=== PATIENT | female | born 1965 | race Caucasian/White ===

== ENCOUNTER 2025-07-02 08:35 | Emergency (ER) | payer MEDICAID, SELFPAY ==
--- OUTSIDE RECORDS SUMMARY | 2025-05-21 20:29 | XMS_ITS | Continuity of Care Document ---
Author Organization [facility] Address [address] [place] [address] Support Name Relationship Address Phone Yordan Jones Delphine DO Personal Relationship [address] [place] [address] Yordan Jones DO Personal Relationship [facility] [place] [address] Tiffani Moreno APRN Personal Relationship [address] [place] [address] Blanca Gonsalez APRN Personal Relationship [address] [place] [address] Rodrigo Treviño MD Personal Relationship [address] [place] [address] Care Teams Patient Care Team Team Status: Active Member Role Status Dates Linda Mercado Tourist Agent Active Yordan Jones DO Primary Care Provider Active Visit Care Team Team Status: Inactive Member Role Status Dates Yordan Jones DO Primary Care Provider Active S tart: January 30, 2025 End: January 30, 2025 Yordan Jones DO Attending Provider Active Star t: January 30, 2025 End: January 30, 2025 Visit Care Team Team Status: Inactive Member Role Status Dates Yordan Jones DO Primary Care Provider Active S tart: January 30, 2025 End: January 30, 2025 Yordan Jones DO Attending Provider Active Star t: January 30, 2025 End: January 30, 2025 Visit Care Team Team Status: Inactive Member Role Status Dates Yordan Jones DO Primary Care Provider Active S tart: February 21, 2025 End: February 21, 2025 Yordan Jones DO Attending Provider Active Star t: February 21, 2025 End: February 21, 2025 Visit Care Team Team Status: Inactive Member Role Status Dates Tiffani Moreno APRN Attending Provider Active Start: February 23, 2025 End: February 23, 2025 Yordan T Rice , DO Primary Care Provider Active S tart: February 23, 2025 End: February 23, 2025 Visit Care Team Team Status: Inactive Member Role Status Dates Yordan T Rice , DO Primary Care Provider Active S tart: March 02, 2025 End: March 02, 2025 Yordan T Rice , DO Attending Provider Active Star t: March 02, 2025 End: March 02, 2025 Visit Care Team Team Status: Inactive Member Role Status Dates Yordan T Rice , DO Primary Care Provider Active S tart: March 21, 2025 End: March 21, 2025 Yordan T Rice , DO Attending Provider Active Star t: March 21, 2025 End: March 21, 2025 Visit Care Team Team Status: Inactive Member Role Status Dates Blanca Gonsalez APRN Attending Provider Active Sta rt: March 28, 2025 End: March 28, 2025 Yordan T Rice , DO Primary Care Provider Active S tart: March 28, 2025 End: March 28, 2025 Visit Care Team Team Status: Inactive Member Role Status Dates Yordan T Rice , DO Primary Care Provider Active S tart: April 19, 2025 End: April 19, 2025 Yordan T Rice , DO Attending Provider Active Star t: April 19, 2025 End: April 19, 2025 Visit Care Team Team Status: Inactive Member Role Status Dates Rodrigo Treviño MD Attending Provider Active Start : May 09, 2025 End: May 09, 2025 Yordan T Rice , DO Primary Care Provider Active S tart: May 09, 2025 End: May 09, 2025 Visit Care Team Team Status: Inactive Member Role Status Dates Yordan T Rice , DO Primary Care Provider Active S tart: May 21, 2025 End: May 21, 2025 Yordan T Rice , DO Attending Provider Active Star t: May 21, 2025 End: May 21, 2025 Visit Care Team Team Status: Inactive Member Role Status Dates Yordan T Rice , DO Primary Care Provider Active S tart: May 21, 2025 End: May 21, 2025 Yordan T Rice , DO Attending Provider Active Star t: May 21, 2025 End: May 21, 2025 Chief Complaint and Reason for Visit Chief Complaint Admit Date Office visit January 30, 2025 10:18 am labs January 30, 2025 11:55 am Office visit February 21, 2025 11:1 0am Injection Only Visit February 23, 2025 1:4 4pm Z12.31 - Encounter for screening mammogr am for mal March 02, 2025 1:51pm Wellness/Preventative March 21, 2025 1:1 1pm 3 Month f/u March 28, 2025 9:01 am Office visit April 19, 2025 1:0 4pm Office visit May 21, 2025 8:23am labs only May 21, 2025 9:11am Reason for Visit Admit Date BMI 28.0-28.9,adult January 30, 2025 10:18 am Chronic pain syndrome January 30, 2025 10: 18am Slow transit constipation January 30, 2025 10:18am CAD (coronary artery disease) January 30, 2025 10:18am Diabetes mellitus January 30, 2025 10:18 am Essential (primary) hypertension January 10:18am Lumbar degenerative disc disease January 10:18am Lumbar radicular pain January 30, 2025 10: 18am Mixed hyperlipidemia January 30, 2025 10:1 8am Pure hypercholesterolemia January 30, 2025 10:18am PVD (peripheral vascular disease) with c laudication January 30, 2025 10:18am Spondylolisthesis, lumbar region January 10:18am Subclinical hyperthyroidism January 30 10:18am Type 2 diabetes mellitus with diabetic p olyneuropathy January 30, 2025 10:18am Type 2 diabetes mellitus wit h stage 3b chronic kidney disease January 30, 2025 10:18am Vitamin D deficiency January 30, 2025 10:1 8am CHF (congestive heart failure) January 30, 2025 10:18am Chronic pain syndrome February 21, 2025 11 :10am Slow transit constipation February 21 11:10am CAD (coronary artery disease) February 21, 2025 11:10am Essential (primary) hypertension February [id number] 11:10am Lumbar degenerative disc disease February [id number] 11:10am Lumbar radicular pain February 21, 2025 11 :10am Mixed hyperlipidemia February 21, 2025 11: 10am Pure hypercholesterolemia February 21 11:10am PVD (peripheral vascular disease) with c laudication February 21, 2025 11:10am Spondylolisthesis, lumbar region February [id number] 11:10am Subclinical hyperthyroidism February 21 025 11:10am Type 2 diabetes mellitus with diabetic p olyneuropathy February 21, 2025 11:10am Type 2 diabetes mellitus wit h stage 3b chronic kidney disease February 21, 2025 11:10am Vitamin D deficiency February 21, 2025 11: 10am CHF (congestive heart failure) February 11:10am BMI 28.0-28.9,adult March 21, 2025 1:11p m Buergers disease March 21, 2025 1:11p m Chronic pain syndrome March 21, 2025 1:1 1pm Slow transit constipation March 21, 2025 1:11pm Allergic rhinitis March 21, 2025 1:11p m CAD (coronary artery disease) March 21, 2025 1:11pm COPD (chronic obstructive pulmonary dise ase) March 21, 2025 1:11pm Essential (primary) hypertension March 1:11pm Lumbar degenerative disc disease March 1:11pm Lumbar radicular pain March 21, 2025 1:1 1pm Mixed hyperlipidemia March 21, 2025 1:11 pm PVD (peripheral vascular disease) with c laudication March 21, 2025 1:11pm Subclinical hyperthyroidism March 21 1:11pm Type 2 diabetes mellitus with diabetic p olyneuropathy March 21, 2025 1:11pm Type 2 diabetes mellitus wit h stage 3b chronic kidney disease March 21, 2025 1:11pm Vitamin D deficiency March 21, 2025 1:11 pm Encounter for Health Maintenance Examina tion in Adult March 21, 2025 1:11pm CAD (coronary artery disease) March 28, 2025 9:01am Cigarette nicotine dependence March 28, 2025 9:01am Essential (primary) hypertension March 282024 9:01am Pure hypercholesterolemia March 28 9:01am PVD (peripheral vascular disease) with c laudication March 28, 2025 9:01am Type 2 diabetes mellitus with diabetic p olyneuropathy March 28, 2025 9:01am Chronic pain syndrome April 19, 2025 1 :04pm Slow transit constipation April 19 1:04pm CAD (coronary artery disease) April 1:04pm Essential (primary) hypertension April 19, 2025 1:04pm Lumbar degenerative disc disease April 19, 2025 1:04pm Lumbar radicular pain April 19, 2025 1 :04pm Mixed hyperlipidemia April 19, 2025 1: 04pm Pure hypercholesterolemia April 19 1:04pm PVD (peripheral vascular disease) with c laudication April 19, 2025 1:04pm Spondylolisthesis, lumbar region April 19, 2025 1:04pm Subclinical hyperthyroidism April 19, 2025 1:04pm Type 2 diabetes mellitus with diabetic p olyneuropathy April 19, 2025 1:04pm Type 2 diabetes mellitus wit h stage 3b chronic kidney disease April 19, 2025 1:04pm Vitamin D deficiency April 19, 2025 1: 04pm CHF (congestive heart failure) April 1:04pm Diabetes mellitus May 21, 2025 8:23am Subclinical hyperthyroidism May 82024 8:23am Allergies, Adverse Reactions, Alerts Allergen Type Severity Reaction Last Updated Verified Status codeine Allergy Mild Hives May 09, 025 7:12am Yes Active lisinopril Adverse Reaction Mild Cough April 142024 7:12am Yes Active Social History Smoking Status Status Start Date End Date Date of Observa tion Ex-smoker (finding) April 142024 8:04am Observation Status Observation Response Date of Response substance use type marijuana May 09, 2025 7:17am alcohol intake never May 09 7:17am Legal Sex Female Sex Assigned At Female 1965 Gender Identity Cisgender/Not transgender (findi ng) June 26, 2024 Cisgender/Not transgender (findi ng) June 26, 2024 Cisgender/Not transgender (findi ng) June 26, 2024 Cisgender/Not transgender (findi ng) June 26, 2024 Cisgender/Not transgender (findi ng) June 26, 2024 Cisgender/Not transgender (findi ng) June 26, 2024 Cisgender/Not transgender (findi ng) June 26, 2024 Cisgender/Not transgender (findi ng) June 26, 2024 Cisgender/Not transgender (findi ng) June 26, 2024 Cisgender/Not transgender (findi ng) June 26, 2024 Cisgender/Not transgender (findi ng) June 26, 2024 Cisgender/Not transgender (findi ng) June 26, 2024 Sexual Orientation Unknown Unknown Unknown Unknown Unknown Unknown Unknown Unknown Unknown Unknown Unknown Unknown Status Not May 21, 2025 Not April 19, 2025 Not March 21, 2025 Not February 21, 2025 Not January 30, 2025 Family History Relationship Condition Age at Onset Recorded Date/T jacinda mother Heart disease Unknown brother History of coronary artery bypass surgery Unknown Problems Active Problems Medical Problem Onset Date Status Acquired spondylolisthesis of lumbosacral region Unknown Active Acute dehydration Unknown Active Type 2 diabetes mellitus with stage 3b chronic k idney disease Unknown Active Encounter for general adult medical examination with abnormal findings Unknown Active Type 2 diabetes mellitus with diabetic polyneuro tommy Unknown Active Low back pain Unknown Active Spondylolisthesis, lumbar region Unknown Active Lateral epicondylitis Unknown Active Subclinical hyperthyroidism Unknown Acti ve Candidiasis of female genitalia Unknown Active Myalgia Unknown Active Dizziness Unknown Active Diabetes mellitus Unknown Active Upper back pain Unknown Active CAD (coronary artery disease) Unknown Ac tive Cat scratch fever Unknown Active Buergers disease Unknown Active Dyspnea Unknown Active Pure hypercholesterolemia Unknown Active Mixed hyperlipidemia Unknown Active Pleural effusion Unknown Active Status post coronary artery bypass grafting Unkn own Active Lumbar degenerative disc disease Unknown Active Essential (primary) hypertension Unknown Active Cigarette nicotine dependence Unknown Ac tive Abnormal mammogram of right breast Unknown Active Superficial thrombophlebitis Unknown Act faiza BMI 28.0-28.9,adult Unknown Active BMI 29.0-29.9,adult Unknown Active BMI 30.0-30.9,adult Unknown Active PVD (peripheral vascular disease) with claudicat ion Unknown Active Lumbar radicular pain Unknown Active Pain in right elbow Unknown Active Chronic pain syndrome Unknown Active COPD (chronic obstructive pulmonary disease) Unk nown Active Lymphadenitis, acute Unknown Active Chronic serous otitis media of both ears Unknown Active History of colon polyps Unknown Active Nausea & vomiting Unknown Active Allergic rhinitis Unknown Active Angina pectoris Unknown Active Chest pain Unknown Active Pneumonia Unknown Active Slow transit constipation Unknown Active Vitamin D deficiency Unknown Active Fall Unknown Active Inactive/Resolved Problems Medical Problem Onset Date Status Anxiety Unknown Resolved Medications Medication Status Dose Units Route Directions Qty Days St art Date Stop Date End Date Instructions Adherence Diclofenac Sodium (Voltaren Arthritis Pain) 1 % gel Discont inued 4 GM TOP FOUR TIMES DAILY November 25, 2023 12:00a m Septe mber 2023 11:00 am Meloxicam 15 mg tablet Discont inued 15 MG PO DAILY 30 November 25, 2023 12:00a m December 24, 2023 12:00 am December 09, 2023 3:06p m Varenicline Tartrate (Chantix Continuing Month Box) 1 mg tablet Discont inued 1 MG PO TWICE A DAY 60 January 03, 2024 12:00a m January 13, 2024 2:51p m Insulin Degludec-Li raglutide (Xultophy 100/3.6) 100 unit-3.6 mg /mL (3 mL) insulin pen Discont inued 40 UNIT SUBCUT once daily at bedtime January 10, 2024 7:45am January 13, 2024 2:51p m Blood Sugar Diagnostic (Accu-Chek Guide Test Strips) strip Active 0 .Route 100 February 23, 2024 1:46pm BID Blood-Gluco se Meter (Accu-Chek Guide Glucose Meter) misc Active 0 .Route February 23, 2024 1:46pm As directed Blood-Gluco se Sensor (Dexcom G6 Sensor) device Discont inued EACH .ROUTE .MEDSUPPLY February 23, 2024 1:46pm Decem 2023 4:13p m As directed Blood-Gluco se Transmitter (Dexcom G6 Transmitter ) device Discont inued EACH .ROUTE EVERY 3 MONTHS February 23, 2024 1:46pm Decem 2023 4:13p m As directed Nitroglycer in 0.4 mg tablet, sublingual Active 0.4 MG SL every 5 to 15 minutes March 31, 2024 1:13pm Unknown Clopidogrel 75 mg tablet Discont inued 75 MG PO DAILY 30 er 2023 1:44pm 2024 3:36p m Aspirin 81 mg tablet,mehreen yed release (DR/EC) Discont inued 81 MG PO DAILY 30 Novemb 2023 1:44pm 2024 3:36p m Rosuvastati n 40 mg tablet Discont inued 40 MG PO DAILY 90 Novemb 2023 1:44pm 2024 5:27p m Loratadine 10 mg tablet Discont inued 10 MG PO DAILY 30 Novemb 2023 1:46pm January 03, 2025 1:24p m Blood-Gluco se Transmitter (Dexcom G6 Transmitter ) device Discont inued 0 .Route 2024 1:00am January 30, 2025 11:49 am As directed Rosuvastati n 40 mg tablet Discont inued 40 MG PO DAILY 2024 5:27pm January 03, 2025 1:24p m Insulin Glargine-Yf gn 100 unit/mL (3 mL) insulin pen Discont inued 32 UNIT SUBCUT TWICE A DAY 15 December 19, 2024 2:43pm March 21, 2025 1:37p m Rivaroxaban (Xarelto) 2.5 mg tablet Discont inued 2.5 MG PO TWICE A DAY 60 December 19, 2024 2:43pm March 21, 2025 1:37p m Blood-Gluco se Sensor (Dexcom G6 Sensor) device Discont inued EACH .ROUTE .MEDSUPPLY January 04, 2025 11:47a m January 30, 2025 11:49 am As directed Blood-Gluco se Transmitter (Dexcom G6 Transmitter ) device Discont inued EACH .ROUTE EVERY 3 MONTHS January 04, 2025 11:47a m January 30, 2025 11:49 am As directed Furosemide 20 mg tablet Discont inued 20 MG PO DAILY as needed for edema February 01, 2025 10:49a m March 21, 2025 1:37p m Tirzepatide (Mounjaro) 15 mg/0.5 mL pen injector Discont inued 15 MG SUBCUT Every Week 2 February 28, 2025 3:57pm March 21, 2025 1:37p m Gabapentin 800 mg tablet Active 800 MG PO THREE TIMES A DAY 90 April 26, 2025 2:17pm Unknown Losartan-Hy drochloroth iazide 50-12.5 mg tablet Discont inued 1 TAB PO DAILY April 26, 2024 12:00a m [facility] 2023 10:59 am Ranolazine 500 mg tablet extended release 12 hr Discont inued 500 MG PO TWICE A DAY April 26, 2024 12:00a m [facility] 2023 11:02 am Varenicline Tartrate 1 mg tablet Discont inued 1 MG PO TWICE A DAY April 26, 2024 12:00a m [facility] 2023 11:02 am Levofloxaci n 500 mg tablet Discont inued 500 MG PO DAILY April 28, 2024 12:00a m [facility] 2023 11:01 am Furosemide 20 mg tablet Discont inued 20 MG PO every other day April 28, 2024 12:00a m [facility] 2023 10:19 am Gabapentin 800 mg tablet Discont inued 800 MG PO THREE TIMES A DAY 90 [facility] 2022 2:46pm 2023 4:41p m Hydrocodone -Acetaminop hen 5-325 mg tablet Discont inued 1 TAB PO TWICE A DAY as needed for pain 45 [facility] 2022 2:38p m Ondansetron 4 mg tablet,disi ntegrating Discont inued 4 MG PO Q8H as needed for nausea and vomiting 30 [facility] 2022 1:00am January 13, 2024 2:51p m Blood-Gluco se Sensor (Dexcom G6 Sensor) device Discont inued EACH .ROUTE .MEDSUPPLY 3 [facility] 2022 2:47pm February 14, 2024 2:50p m As directed Blood-Gluco se Transmitter (Dexcom G6 Transmitter ) device Discont inued EACH .ROUTE EVERY 3 MONTHS 1 [facility] 2022 2:48pm February 23, 2024 1:46p m As directed Duloxetine 30 mg capsule,del ayed release(DR/ EC) Discont inued 30 MG PO DAILY May 10, 2023 12:00a m Octob er 2022 12:23 pm Blood-Gluco se Transmitter (Dexcom G6 Transmitter ) device Discont inued EACH .ROUTE EVERY 3 MONTHS May 10, 2023 12:00a m Dece ariadne 2022 2:50p m As directed Blood-Gluco se Sensor (Dexcom G6 Sensor) device Discont inued EACH .ROUTE .MEDSUPPLY May 10, 2023 12:00a m Dece 2022 2:50p m As directed Cholecalcif christina (Vitamin D3) 1,250 mcg (50,000 unit) capsule Discont inued 1250 MCG PO Every Week May 10, 2023 12:00a m Octob er 2022 12:23 pm Rosuvastati n 40 mg tablet Discont inued 40 MG PO DAILY May 10, 2023 12:00a m Octob er 2022 12:14 pm Loratadine 10 mg tablet Discont inued 10 MG PO DAILY May 10, 2023 12:00a m Octob er 2022 12:23 pm Losartan-Hy drochloroth iazide 50-12.5 mg tablet Discont inued 1 TAB PO DAILY May 10, 2023 12:00a m Octob er 2022 12:23 pm Polyethylen e Glycol 3350 (Clearlax) 17 gram/dose powder Discont inued GM PO DAILY as needed for constipatio n May 10, 2023 12:00a m Aug[facility] t 2023 6:07p m Furosemide 20 mg tablet Discont inued 20 MG PO DAILY as needed for edema May 10, 2023 12:00a m Aug[facility] t 2023 9:52a m Docusate Sodium 100 mg capsule Discont inued 100 MG PO DAILY May 10, 2023 12:00a m Octob er 2022 12:23 pm Gabapentin 800 mg tablet Discont inued 800 MG PO THREE TIMES A DAY May 10, 2023 12:00a m Septe mber 2022 12:50 pm Aspirin 81 mg tablet,mehreen yed release (DR/EC) Discont inued 81 MG PO DAILY May 10, 2023 12:00a m Octob er 2022 12:23 pm Clopidogrel 75 mg tablet Discont inued 75 MG PO DAILY May 10, 2023 12:00a m Octob er 2022 12:23 pm Citalopram 40 mg tablet Discont inued 40 MG PO DAILY May 10, 2023 12:00a m Octob er 2022 12:22 pm Insulin Degludec-Li raglutide (Xultophy 100/3.6) 100 unit-3.6 mg /mL (3 mL) insulin pen Discont inued 36 UNIT SUBCUT once daily at bedtime May 10, 2023 12:00a m Octob er 2022 12:23 pm Pen Needle, Diabetic (Bd Ultra-Fine Short Pen Needle) 31 gauge x 5/16 needle Discont inued EACH .ROUTE once daily at bedtime 1200 May 10, 2023 12:00a m Novem ariadne 2022 4:08p m As directed Albuterol Sulfate (Ventolin Hfa) 90 mcg/actuati on HFA aerosol inhaler Discont inued 1 PUFF INH Q8H as needed for shortness of breath or wheezing May 10, 2023 12:00a m March 21, 2025 1:37p m Albuterol Sulfate 1.25 mg/3 mL solution for nebulizatio n Discont inued 1.25 MG CNTNEB ULIZ EVERY 4-6 HOURS May 10, 2023 12:00a m Septe mber 2023 11:03 am Naloxone 4 mg/actuatio n spray,non-a erosol Active 1 SPRAY IN As Directed May 10, 2023 12:00a m Unknown Gabapentin 800 mg tablet Discont inued 800 MG PO THREE TIMES A DAY Septem ariadne 2022 12:49p m Octob er 2022 12:14 pm Rosuvastati n 40 mg tablet Discont inued 40 MG PO DAILY 90 Octobe r 2022 12:08p m Janua ry 2023 2:38p m Gabapentin 800 mg tablet Discont inued 800 MG PO THREE TIMES A DAY Octobe r 2022 12:11p m Novem ariadne 2022 4:07p m Varenicline Tartrate (Chantix Starting Month Box) 0.5 mg (11)- 1 mg (42) tablets,dos e pack Discont inued 0 PO [facility] 12:00a m Decem ariadne 2022 2:53p m PO PER PKG DIR Losartan-Hy drochloroth iazide 50-12.5 mg tablet Discont inued 1 TAB PO DAILY 30 2022 12:18p m 2023 2:38p m Loratadine 10 mg tablet Discont inued 10 MG [facility]ILY [facility] 12:19p m 2023 2:38p m Insulin Degludec-Li raglutide (Xultophy 100/3.6) 100 unit-3.6 mg /mL (3 mL) insulin pen Discont inued 36 UNIT SUBCUT once daily at bedtime [facility] 12:19p m 2023 2:38p m Duloxetine 60 mg capsule,del ayed release(DR/ EC) Discont inued 60 MG PO DAILY 30 2022 12:20p m 2023 2:38p m Docusate Sodium 100 mg capsule Discont inued 100 MG PO DAILY 30 2022 12:21p m 2023 2:38p m Clopidogrel 75 mg tablet Discont inued 75 MG PO DAILY 2022 12:22p m 2023 2:38p m Cholecalcif christina (Vitamin D3) 1,250 mcg (50,000 unit) capsule Discont inued 1250 MCG PO Every Week 14 2022 12:22p m 2023 2:38p m Aspirin 81 mg tablet,mehreen yed release (DR/EC) Discont inued 81 MG PO DAILY [facility] 12:23p m 2023 2:38p m Gabapentin 800 mg tablet Discont inued 800 MG PO THREE TIMES A DAY 90 Novemb er 2022 4:05pm Decem ariadne 2022 2:50p m Celecoxib 200 mg capsule Discont inued 200 MG PO DAILY 30 Novemb er 2022 1:00am Febru [email or web address] 4:23p m Hydrocodone -Acetaminop hen 5-325 mg tablet Discont inued 1 TAB PO TWICE A DAY as needed for pain 45 Novemb er 2022 Decem ariadne 2022 2:50p m Pen Needle, Diabetic (Bd Ultra-Fine Short Pen Needle) 31 gauge x 5/16 needle Discont inued EACH .ROUTE once daily at bedtime 300 Novemb er 2022 4:07pm Janua ry 2023 2:38p m As directed Insulin Degludec-Li raglutide (Xultophy 100/3.6) 100 unit-3.6 mg /mL (3 mL) insulin pen Discont inued 40 UNIT SUBCUT once daily at bedtime 15 2023 2:37pm u 2023 4:23p m Hydrocodone -Acetaminop hen 5-325 mg tablet Discont inued 1 TAB PO TWICE A DAY as needed for pain 45 y 2023 4:23p m Pen Needle, Diabetic (Bd Ultra-Fine Short Pen Needle) 31 gauge x 5/16 needle Discont inued EACH .ROUTE once daily at bedtime 300 Sepuar y 2023 2:37pm Augus t 2023 1:16p m As directed Losartan-Hy drochloroth iazide 50-12.5 mg tablet Discont inued 1 TAB PO DAILY 30 2023 2:37pm [email or web address] 4:23p m Loratadine 10 mg tablet Discont inued 10 MG PO DAILY 2023 2:37pm u [email or web address] 4:23p m Duloxetine 60 mg capsule,del ayed release(DR/ EC) Discont inued 60 MG PO DAILY 30 2023 2:37pm Febru [email or web address] 4:23p m Docusate Sodium 100 mg capsule Discont inued 100 MG PO DAILY 2023 2:37pm January 13, 2024 2:51p m Clopidogrel 75 mg tablet Discont inued 75 MG PO DAILY 2023 2:37pm 2023 4:23p m Cholecalcif christina (Vitamin D3) 1,250 mcg (50,000 unit) capsule Discont inued 1250 MCG PO Every Week 2023 2:38pm 2023 4:23p m Aspirin 81 mg tablet,mehreen yed release (/EC) Discont inued 81 MG PO DAILY 2023 2:38pm January 13, 2024 2:51p m Rosuvastati n 40 mg tablet Discont inued 40 MG PO DAILY 2023 2:38pm 2023 4:23p m Gabapentin 800 mg tablet Discont inued 800 MG PO THREE TIMES A DAY 2023 4:41pm 2023 4:23p m Rivaroxaban (Xarelto) 2.5 mg tablet Discont inued 2.5 MG PO TWICE A DAY December 09, 2023 12:00a m January 13, 2024 2:51p m Hydrocodone -Acetaminop hen 5-325 mg tablet Discont inued 1 TAB PO TWICE A DAY as needed for pain December 09, 2023 January 13, 2024 2:51p m Gabapentin 800 mg tablet Discont inued 800 MG PO THREE TIMES A DAY December 09, 2023 3:07pm January 13, 2024 2:51p m Varenicline Tartrate 0.5 mg (11)- 1 mg (42) tablets,dos e pack Discont inued 0 PO Per package directions 53 December 09, 2023 12:00a m January 13, 2024 2:48p m PO PER PKG DIR Gabapentin 800 mg tablet Discont inued 800 MG PO THREE TIMES A DAY January 13, 2024 2:48pm February 14, 2024 2:50p m Hydrocodone -Acetaminop hen 5-325 mg tablet Discont inued 1 TAB PO TWICE A DAY as needed for pain January 13, 2024 February 14, 2024 2:50p m Aspirin 81 mg tablet,mehreen yed release (DR/EC) Discont inued 81 MG PO DAILY January 13, 2024 2:49pm April 06, 2024 10:01 am Cholecalcif christina (Vitamin D3) 1,250 mcg (50,000 unit) capsule Discont inued 1250 MCG PO Every Week January 13, 2024 2:49pm April 06, 2024 10:01 am Clopidogrel 75 mg tablet Discont inued 75 MG PO DAILY January 13, 2024 2:49pm April 06, 2024 10:01 am Duloxetine 60 mg capsule,del ayed release(DR/ EC) Discont inued 60 MG PO DAILY January 13, 2024 2:49pm April 06, 2024 10:01 am Loratadine 10 mg tablet Discont inued 10 MG PO DAILY January 13, 2024 2:49pm April 06, 2024 10:01 am Losartan-Hy drochloroth iazide 50-12.5 mg tablet Discont inued 1 TAB PO DAILY January 13, 2024 2:49pm April 06, 2024 10:01 am Rosuvastati n 40 mg tablet Discont inued 40 MG PO DAILY January 13, 2024 2:49pm April 06, 2024 10:01 am Rivaroxaban (Xarelto) 2.5 mg tablet Discont inued 2.5 MG PO TWICE A DAY January 13, 2024 2:49pm April 06, 2024 10:01 am Ondansetron 4 mg tablet,disi ntegrating Discont inued 4 MG PO Q8H as needed for nausea and vomiting January 13, 2024 2:50pm April 06, 2024 10:01 am Docusate Sodium 100 mg capsule Discont inued 100 MG PO DAILY January 13, 2024 2:50pm April 06, 2024 10:01 am Varenicline Tartrate (Chantix Continuing Month Box) 1 mg tablet Discont inued 1 MG PO TWICE A DAY January 13, 2024 2:50pm February 14, 2024 2:50p m Insulin Degludec-Li raglutide (Xultophy 100/3.6) 100 unit-3.6 mg /mL (3 mL) insulin pen Discont inued 40 UNIT SUBCUT once daily at bedtime January 13, 2024 2:51pm February 14, 2024 2:50p m Ranolazine 500 mg tablet extended release 12 hr Discont inued 500 MG PO TWICE A DAY February 04, 2024 12:00a m Augus t 2023 9:52a m Bisoprolol Fumarate 5 mg tablet Discont inued 5 MG PO DAILY February 04, 2024 12:00a m Octob er 2023 10:47 am Nitroglycer in 0.4 mg tablet, sublingual Discont inued 0.4 MG SL Q5M as needed for chest pain February 04, 2024 12:00a m March 31, 2024 1:13p m do not exceed 3 doses per episode Oxycodone-A cetaminophe n 7.5-325 mg tablet Discont inued 1 TAB PO Q6H as needed for pain April 25, [facility] 11:07 am Losartan 50 mg tablet Discont inued 50 MG PO DAILY 2023 12:00a m Octob er 2023 10:47 am Citalopram 20 mg tablet Discont inued 20 MG PO DAILY 2023 12:00a m [facility] 2023 2:29p m Icosapent Ethyl 1 gram capsule Active 2 GM PO TWICE A DAY 2023 12:00a m Unknown Bupropion Hcl 300 mg tablet extended release 24 hr Discont inued 300 MG PO Every Morning 2023 12:00a m Octob er 2023 10:47 am Insulin Degludec-Li raglutide (Xultophy 100/3.6) 100 unit-3.6 mg /mL (3 mL) insulin pen Discont inued 56 UNIT SUBCUT once daily at bedtime 2023 11:06a m Octob er 2023 10:19 am Hydrocodone -Acetaminop hen 7.5-325 mg tablet Discont inued 1 TAB PO TWICE A DAY as needed for pain 60 2023 Octob er 2023 10:19 am Losartan 50 mg tablet Discont inued 25 [facility] 10:43a m Novem ariadne 2023 2:30p m Insulin Degludec-Li raglutide (Xultophy 100/3.6) 100 unit-3.6 mg /mL (3 mL) insulin pen Discont inued 56 UNIT SUBCUT once daily at bedtime [facility] 10:14a m Novem ariadne 2023 2:28p m Semaglutide (Ozempic) 2 mg/dose (8 mg/3 mL) pen injector Discont inued 2 [facility] Janua ry 2024 3:34p m Insulin Glargine-Yf gn 100 unit/mL (3 mL) insulin pen Discont inued 32 UNIT SUBCUT TWICE A DAY [facility] 12:[facility]a m Sepua ry 2024 3:34p m Hydrocodone -Acetaminop hen 7.5-325 mg tablet Discont inued 1 TAB PO TWICE A DAY as needed for pain [facility] ariadne 2023 2:39p m Rivaroxaban (Xarelto) 2.5 mg tablet Discont inued 2.5 MG PO TWICE A DAY [facility] 10:18a m Sepua ry 2024 3:34p m Rosuvastati n 40 mg tablet Discont inued 40 MG PO DAILY [facility] 10:18a m Novem ariadne 2023 1:46p m Loratadine 10 mg tablet Discont inued 10 MG PO DAILY [facility] 10:18a m Novem ariadne 2023 1:46p m Cholecalcif christina (Vitamin D3) 1,250 mcg (50,000 unit) capsule Discont inued 1250 MCG PO Every Week [facility] 10:18a m Octob er 2023 10:47 am Clopidogrel 75 mg tablet Discont inued 75 MG PO DAILY [facility] 10:18a m Novem ariadne 2023 1:46p m Docusate Sodium 100 mg capsule Discont inued 100 MG PO DAILY 30 [facility] 2023 10:18a m Janua ry 2024 3:34p m Duloxetine 60 mg capsule,del ayed release(DR/ EC) Discont inued 60 MG PO DAILY 30 [facility] 2023 10:18a m Janua ry 2024 3:34p m Aspirin 81 mg tablet,mehreen yed release (DR/EC) Discont inued 81 MG PO DAILY 30 [facility] 2023 10:18a m Novem ariadne 2023 1:46p m Azithromyci n 250 mg tablet Discont inued 0 PO .COMPLEX 6 Jun[facility] r 2023 12:00a m Octob er 2023 9:51a m For 250 mg dose pack: take 500 mg today (day 1), then 250 mg for 4 days (days 2-5) PO Docusate Sodium 100 mg capsule Discont inued 100 MG PO DAILY 2024 3:31pm 2024 3:36p m Hydrocodone -Acetaminop hen 7.5-325 mg tablet Discont inued 1 TAB PO TWICE A DAY as needed for pain 2024 3:36p m Rivaroxaban (Xarelto) 2.5 mg tablet Discont inued 2.5 MG PO TWICE A DAY 2024 3:32pm December 19, 2024 2:44p m Ranolazine 500 mg tablet extended release 12 hr Discont inued 500 MG PO TWICE A DAY 2024 3:32pm January 03, 2025 1:24p m Semaglutide (Ozempic) 2 mg/dose (8 mg/3 mL) pen injector Discont inued 2 MG SUBCUT Every Week 2024 3:33pm December 04, 2024 8:57a m Insulin Glargine-Yf gn 100 unit/mL (3 mL) insulin pen Discont inued 32 UNIT SUBCUT TWICE A DAY 2024 3:33pm December 19, 2024 2:44p m Duloxetine 60 mg capsule,del ayed release(DR/ EC) Discont inued 60 MG PO DAILY 2024 3:33pm 2024 3:36p m Glipizide 2.5 mg tablet extended release 24hr Discont inued 2.5 MG PO DAILY 2024 1:00am 2024 3:36p m Empaglifloz in 10 mg tablet Discont inued 10 MG PO DAILY 2024 3:35pm 2024 3:36p m Finerenone (Kerendia) 10 mg tablet Discont inued 10 MG PO DAILY 2024 1:00am 2024 3:36p m Bisoprolol Fumarate 5 mg tablet Discont inued 2.5 MG PO DAILY 2024 3:34pm January 03, 2025 1:24p m Aspirin 81 mg tablet,mehreen yed release (DR/EC) Discont inued 81 MG PO DAILY 2024 3:34pm January 03, 2025 1:24p m Clopidogrel 75 mg tablet Discont inued 75 MG PO DAILY 2024 3:34pm January 03, 2025 1:24p m Docusate Sodium 100 mg capsule Discont inued 100 MG PO DAILY 2024 3:34pm January 03, 2025 1:24p m Duloxetine 60 mg capsule,del ayed release(DR/ EC) Discont inued 60 MG PO DAILY 2024 3:34pm January 03, 2025 1:24p m Empaglifloz in 10 mg tablet Discont inued 10 MG PO DAILY 2024 3:35pm January 03, 2025 1:24p m Finerenone (Kerendia) 10 mg tablet Discont inued 10 MG PO DAILY 2024 3:35pm January 03, 2025 1:24p m Ergocalcife rol (Vitamin D2) 1,250 mcg (50,000 unit) capsule Discont inued 1250 MCG PO Every Week 14 2024 3:35pm January 03, 2025 1:24p m Gabapentin 800 mg tablet Discont inued 800 MG PO THREE TIMES A DAY 90 2024 3:35pm January 30, 2025 11:53 am Hydrocodone -Acetaminop hen 7.5-325 mg tablet Discont inued 1 TAB PO TWICE A DAY as needed for pain 60 2024December 04, 2024 8:49a m Furosemide 20 mg tablet Discont inued 20 MG PO DAILY as needed for edema 30 2024 3:35pm January 03, 2025 1:24p m Hydrocodone -Acetaminop hen 7.5-325 mg tablet Discont inued 1 TAB PO TWICE A DAY as needed for pain 60 December 04, 2024 December 04, 2024 10:56 am Inclisiran (Leqvio) 284 mg/1.5 mL syringe Discont inued 284 MG SUBCUT EVERY 3 MONTHS 1.5 December 04, 2024 12:00a m January 03, 2025 1:24p m Tirzepatide (Mounjaro) 15 mg/0.5 mL pen injector Discont inued 15 MG SUBCUT Every Week 2 December 04, 2024 12:00a m February 21, 2025 11:39 am Hydrocodone -Acetaminop hen 7.5-325 mg tablet Discont inued 1 TAB PO TWICE A DAY as needed for pain 60 December 04, 2024 January 03, 2025 1:24p m Nystatin 100,000 unit/gram powder Discont inued 1 KIERRA TOP DAILY 15 2024 1:00am December 04, 2024 8:45a m Losartan 25 mg tablet Discont inued 12.5 MG PO DAILY 30 January 03, 2025 12:00a m March 21, 2025 1:37p m Aspirin 81 mg tablet,mehreen yed release (/EC) Discont inued 81 MG PO DAILY 30 January 03, 2025 1:22pm March 21, 2025 1:37p m Bisoprolol Fumarate 5 mg tablet Discont inued 2.5 MG PO DAILY 15 January 03, 2025 1:pm March 21, 2025 1:37p m Clopidogrel 75 mg tablet Discont inued 75 MG PO DAILY 30 January 03, 2025 1:22pm March 21, 2025 1:37p m Docusate Sodium 100 mg capsule Discont inued 100 MG PO DAILY 30 January 03, 2025 1:pm March 21, 2025 1:34p m Duloxetine 60 mg capsule,del ayed release(DR/ EC) Discont inued 60 MG PO DAILY 30 January 03, 2025 1:23pm March 21, 2025 1:37p m Ergocalcife rol (Vitamin D2) 1,250 mcg (50,000 unit) capsule Discont inued 1250 MCG PO Every Week 14 January 03, 2025 1:pm March 21, 2025 1:37p m Finerenone (Kerendia) 10 mg tablet Discont inued 10 MG PO DAILY 30 January 03, 2025 1:pm January 30, 2025 11:53 am Empaglifloz in 10 mg tablet Discont inued 10 MG PO DAILY 90 January 03, 2025 1:pm January 30, 2025 11:53 am Furosemide 20 mg tablet Discont inued 20 MG PO DAILY as needed for edema January 03, 2025 1:pm February 01, 2025 10:49 am Hydrocodone -Acetaminop hen 7.5-325 mg tablet Discont inued 1 TAB PO TWICE A DAY as needed for pain 60 January 03, 2025 January 30, 2025 11:53 am Inclisiran (Leqvio) 284 mg/1.5 mL syringe Discont inued 284 MG SUBCUT EVERY 3 MONTHS 1.5 January 03, 2025 1:pm February 21, 2025 11:39 am Loratadine 10 mg tablet Discont inued 10 MG PO DAILY 30 January 03, 2025 1:23pm March 21, 2025 1:36p m Ranolazine 500 mg tablet extended release 12 hr Discont inued 500 MG PO TWICE A DAY 60 January 03, 2025 1:24pm March 21, 2025 1:37p m Rosuvastati n 40 mg tablet Discont inued 40 MG PO DAILY 90 January 03, 2025 1:24pm March 21, 2025 1:37p m Hydrocodone -Acetaminop hen 7.5-325 mg tablet Discont inued 1 TAB PO TWICE A DAY as needed for pain 60 February 21, 2025 February 21, 2025 2:45p m Inclisiran (Leqvio) 284 mg/1.5 mL syringe Discont inued 284 MG SUBCUT EVERY 3 MONTHS 1.5 February 21, 2025 11:37a m 2024 9:02a m x2, then q 6 months Tirzepatide (Mounjaro) 15 mg/0.5 mL pen injector Discont inued 15 MG SUBCUT Every Week 2 February 21, 2025 11:38a m February 28, 2025 3:58p m Pen Needle, Diabetic 31 gauge x 5/16 needle Active EACH .ROUTE once daily at bedtime 300 February 21, 2025 11:40a m As directed Blood-Gluco se Sensor (Dexcom G7 Sensor) device Discont inued 0 .Route 2 February 21, 2025 11:41a m Septe 2024 9:02a m As directed Blood-Gluco se,Patent Examiner ,Cont (Dexcom G7 Patent Examiner) misc Active 0 .Route 1 February 21, 2025 11:41a m As directed Hydrocodone -Acetaminop hen 7.5-325 mg tablet Discont inued 1 TAB PO TWICE A DAY as needed for pain 60 February 21, 2025 March 21, 2025 1:37p m Albuterol Sulfate (Ventolin Hfa) 90 mcg/actuati on HFA aerosol inhaler Active 1 PUFF INH Q8H as needed for shortness of breath or wheezing 8.5 March 21, 2025 1:33pm Unknown Aspirin 81 mg tablet,mehreen yed release (DR/EC) Active 81 MG PO DAILY 30 March 21, 2025 1:34pm Unknown Bisoprolol Fumarate 5 mg tablet Active 2.5 MG PO DAILY 15 March 21, 2025 1:34pm Unknown Clopidogrel 75 mg tablet Active 75 MG PO DAILY 30 March 21, 2025 1:34pm Unknown Duloxetine 60 mg capsule,del ayed release(DR/ EC) Active 60 MG PO DAILY March 21, 2025 1:35pm Unknown Ergocalcife rol (Vitamin D2) 1,250 mcg (50,000 unit) capsule Active 1250 MCG PO Every Week 14 March 21, 2025 1:35pm Unknown Finerenone 20 mg tablet Active 20 MG PO DAILY 30 March 21, 2025 1:35pm Unknown Furosemide 20 mg tablet Active 20 MG PO DAILY as needed for edema 30 March 21, 2025 1:35pm Unknown Hydrocodone -Acetaminop hen 7.5-325 mg tablet Discont inued 1 TAB PO TWICE A DAY as needed for pain 60 March 21, 2025 Augus t 2024 1:44p m Insulin Glargine-Yf gn 100 unit/mL (3 mL) insulin pen Discont inued 32 UNIT SUBCUT TWICE A DAY 15 March 21, 2025 1:35pm March 21, 2025 1:38p m Levocetiriz ine 5 mg tablet Active 5 MG PO DAILY 30 March 21, 2025 12:00a m Unknown Losartan 25 mg tablet Active 12.5 MG PO DAILY 30 March 21, 2025 1:36pm Unknown Ranolazine 500 mg tablet extended release 12 hr Active 500 MG PO TWICE A DAY 60 March 21, 2025 1:36pm Unknown Rivaroxaban (Xarelto) 2.5 mg tablet Active 2.5 MG PO TWICE A DAY 60 March 21, 2025 1:36pm Unknown Rosuvastati n 40 mg tablet Active 40 MG PO DAILY 90 March 21, 2025 1:36pm Unknown Tirzepatide (Mounjaro) 15 mg/0.5 mL pen injector Active 15 MG SUBCUT Every Week 2 March 21, 2025 1:36pm Unknown Insulin Glargine-Yf gn 100 unit/mL (3 mL) insulin pen Discont inued 32 UNIT SUBCUT TWICE A DAY March 21, 2025 1:38pm Septe mber 2024 8:59a m Pen Needle, Diabetic 31 gauge x 5/16 needle Active EACH .ROUTE once daily at bedtime 300 March 21, 2025 1:39pm As directed Rosuvastati n 40 mg tablet Discont inued 40 MG PO DAILY 2023 4:22pm January 13, 2024 2:52p m Losartan-Hy drochloroth iazide 50-12.5 mg tablet Discont inued 1 TAB PO DAILY 2023 4:pm January 13, 2024 2:52p m Loratadine 10 mg tablet Discont inued 10 MG PO DAILY 2023 4:pm January 13, 2024 2:52p m Insulin Degludec-Li raglutide (Xultophy 100/3.6) 100 unit-3.6 mg /mL (3 mL) insulin pen Discont inued 40 UNIT SUBCUT once daily at bedtime 2023 4:pm January 10, 2024 7:45a m Hydrocodone -Acetaminop hen 5-325 mg tablet Discont inued 1 TAB PO TWICE A DAY as needed for pain 2023November 18, 2023 4:21p m Gabapentin 800 mg tablet Discont inued 800 MG PO THREE TIMES A DAY 2023 4:pm November 18, 2023 4:21p m Duloxetine 60 mg capsule,del ayed release(/ EC) Discont inued 60 MG PO DAILY 2023 4:pm January 13, 2024 2:52p m Clopidogrel 75 mg tablet Discont inued 75 MG PO DAILY 2023 4:23pm January 13, 2024 2:52p m Cholecalcif christina (Vitamin D3) 1,250 mcg (50,000 unit) capsule Discont inued 1250 MCG PO Every Week 2023 4:pm January 13, 2024 2:52p m Celecoxib 200 mg capsule Discont inued 200 MG PO DAILY 2023 4:pm December 09, 2023 3:06p m Gabapentin 800 mg tablet Discont inued 800 MG PO THREE TIMES A DAY November 18, 2023 4:December 09, 2023 3:09p m Hydrocodone -Acetaminop hen 5-325 mg tablet Discont inued 1 TAB PO TWICE A DAY as needed for pain 45 November 18, 2023 December 09, 2023 3:09p m Insulin Degludec-Li raglutide (Xultophy 100/3.6) 100 unit-3.6 mg /mL (3 mL) insulin pen Discont inued 40 UNIT SUBCUT once daily at bedtime February 14, 2024 2:46pm March 09, 2024 10:18 am Empaglifloz in (Jardiance) 10 mg tablet Discont inued 10 MG PO DAILY 30 February 14, 2024 12:00a m March 09, 2024 10:18 am Blood-Gluco se Meter (Accu-Chek Guide Glucose Meter) misc Discont inued 0 .Route 1 February 14, 2024 12:00a m February 23, 2024 1:46p m As directed Blood-Gluco se Sensor (Dexcom G6 Sensor) device Discont inued EACH .ROUTE .MEDSUPPLY 3 February 14, 2024 2:48pm February 23, 2024 1:46p m As directed Blood Sugar Diagnostic (Accu-Chek Guide Test Strips) strip Discont inued 0 .Route 100 February 14, 2024 12:00a m February 23, 2024 1:46p m BID Lancets (Accu-Chek Safe-T-Pro) 23 gauge misc Discont inued 0 .Route 200 February 14, 2024 12:00a m Decem 2023 4:07p m As directed Varenicline Tartrate (Chantix Continuing Month Box) 1 mg tablet Discont inued 1 MG PO TWICE A DAY 60 February 14, 2024 2:50pm March 09, 2024 10:16 am Gabapentin 800 mg tablet Discont inued 800 MG PO THREE TIMES A DAY February 14, 2024 2:50pm March 09, 2024 10:18 am Hydrocodone -Acetaminop hen 5-325 mg tablet Discont inued 1 TAB PO TWICE A DAY as needed for pain 60 February 14, 2024 March 09, 2024 10:18 am Insulin Degludec-Li raglutide (Xultophy 100/3.6) 100 unit-3.6 mg /mL (3 mL) insulin pen Discont inued 50 UNIT SUBCUT once daily at bedtime March 09, 2024 10:16a m Emi fowler 2023 11:10 am Empaglifloz in 25 mg tablet Discont inued 25 MG PO DAILY 90 March 09, 2024 10:17a m Dece ariadne 2023 4:10p m Metformin 750 mg tablet extended release 24 hr Discont inued 750 MG PO DAILY March 09, 2024 12:00a m Dece ariadne 2023 4:07p m Gabapentin 800 mg tablet Discont inued 800 MG PO THREE TIMES A DAY 90 March 09, 2024 10:18a m April 07, 2024 1:57p m Hydrocodone -Acetaminop hen 5-325 mg tablet Discont inued 1 TAB PO TWICE A DAY as needed for pain 60 March 09, 2024 April 07, 2024 1:57p m Ezetimibe (Zetia) 10 mg tablet Discont inued 10 MG PO DAILY March 21, 2024 12:00a m Emi mber 2023 11:00 am Aspirin 81 mg tablet,mehreen yed release (DR/EC) Discont inued 81 MG PO DAILY April 06, 2024 9:59am Octob er 2023 10:20 am Cholecalcif christina (Vitamin D3) 1,250 mcg (50,000 unit) capsule Discont inued 1250 MCG PO Every Week April 06, 2024 9:59am Octob er 2023 10:20 am Clopidogrel 75 mg tablet Discont inued 75 MG PO DAILY April 06, 2024 9:59am Octob er 2023 10:20 am Docusate Sodium 100 mg capsule Discont inued 100 MG PO DAILY April 06, 2024 10:00a m Octob er 2023 10:20 am Duloxetine 60 mg capsule,del ayed release(DR/ EC) Discont inued 60 MG PO DAILY April 06, 2024 10:00a m Octob er 2023 10:20 am Loratadine 10 mg tablet Discont inued 10 MG PO DAILY April 06, 2024 10:00a m Octob er 2023 10:20 am Losartan-Hy drochloroth iazide 50-12.5 mg tablet Discont inued 1 TAB PO DAILY April 06, 2024 10:00a m Augus t 2023 9:49a m Ondansetron 4 mg tablet,disi ntegrating Discont inued 4 MG PO Q8H as needed for nausea and vomiting April 06, 2024 10:00a m Novem ariadne 2023 2:38p m Rosuvastati n 40 mg tablet Discont inued 40 MG PO DAILY 90 April 06, 2024 10:00a m Octob er 2023 10:20 am Rivaroxaban (Xarelto) 2.5 mg tablet Discont inued 2.5 MG PO TWICE A DAY 60 April 06, 2024 10:00a m Octob er 2023 10:20 am Hydrocodone -Acetaminop hen 5-325 mg tablet Discont inued 1 TAB PO TWICE A DAY as needed for pain 60 April 07, 2024 Augus t 2023 1:16p m Gabapentin 800 mg tablet Discont inued 800 MG PO THREE TIMES A DAY 90 April 07, 2024 1:57pm Augus t 2023 1:16p m Hydrocodone -Acetaminop hen 5-325 mg tablet Discont inued 1 TAB PO TWICE A DAY as needed for pain 60 May 04, 2024 Septe mber 2023 11:07 am Gabapentin 800 mg tablet Discont inued 800 MG PO THREE TIMES A DAY 90 May 04, 2024 1:15pm Novem 2023 2:39p m Pen Needle, Diabetic (Bd Ultra-Fine Short Pen Needle) 31 gauge x 5/16 needle Discont inued EACH .ROUTE once daily at bedtime 300 May 04, 2024 1:16pm Decem ariadne 2023 4:10p m As directed Losartan 50 mg tablet Discont inued 50 MG PO DAILY April 26, 2024 12:00a m Augus t 2023 6:12p m Furosemide 20 mg tablet Discont inued 20 MG PO DAILY as needed for edema April 26, 2024 12:00a m Augus t 2023 6:12p m Ranolazine 500 mg tablet extended release 12 hr Discont inued 500 MG PO TWICE A DAY Octobe r 2023 12:00a m Janua ry 2024 3:35p m Furosemide 20 mg tablet Discont inued 20 MG PO DAILY as needed Octobe r 2023 12:00a m Febru shahbaz 5 3:37p m Losartan-Hy drochloroth iazide 50-12.5 mg tablet Discont inued 1 TAB PO DAILY Octobe r 2023 12:00a m Dece ariadne 2023 4:11p m Lidocaine 5 % adhesive patch,medic ated Discont inued 1 PATCH TOP DAILY 30 Octobe r 2023 12:00a m 2023 2:39p m leave on most painful area for up to 12 hrs Ergocalcife rol (Vitamin D2) 1,250 mcg (50,000 unit) capsule Discont inued 1250 MCG PO Novemb er 2023 1:00am u 2024 3:37p m Ezetimibe 10 mg tablet Discont inued 10 MG PO DAILY Novemb er 2023 1:00am December 04, 2024 8:49a m Pantoprazol e 40 mg tablet,mehreen yed release (DR/EC) Active 40 MG PO DAILY b er 2023 1:00am Unknown Bisoprolol Fumarate 5 mg tablet Discont inued 2.5 MG PO DAILY Novemb er 2023 1:00am 2023 2:39p m Hydrocodone -Acetaminop hen 7.5-325 mg tablet Discont inued 1 TAB PO TWICE A DAY as needed for pain 60 Novemb er 2023 Dece 2023 4:07p m Gabapentin 800 mg tablet Discont inued 800 MG PO THREE TIMES A DAY 90 b er 2023 2:38pm 2024 3:37p m Bisoprolol Fumarate 5 mg tablet Discont inued 2.5 MG PO DAILY 15 b er 2023 2:38pm u 2024 3:37p m Fluconazole 100 mg tablet Discont inued 100 MG PO DAILY 5 b 2023 1:00am 2024 3:25p m Hydrocodone -Acetaminop hen 7.5-325 mg tablet Discont inued 1 TAB PO TWICE A DAY as needed for pain 60 Dece er 2023 3:35p m Metformin 750 mg tablet extended release 24 hr Discont inued 750 MG PO DAILY 90 [facility] 2023 4:07pm 2024 3:35p m Lancets (Accu-Chek Safe-T-Pro) 23 gauge misc Discont inued 0 .Route 200 [facility] 2023 4:07pm Augus t 2024 1:45p m As directed Pen Needle, Diabetic (Bd Ultra-Fine Short Pen Needle) 31 gauge x 5/16 needle Discont inued EACH .ROUTE once daily at bedtime 300 [facility] 2023 4:10pm February 21, 2025 11:41 am As directed Empaglifloz in 25 mg tablet Discont inued 25 MG PO DAILY 90 [facility] 2023 4:10pm 2024 3:36p m Losartan 50 mg tablet Discont inued 50 MG PO DAILY 30 [facility] 2023 1:00am January 03, 2025 1:21p m On Hold: None Blood-Gluco se Transmitter (Dexcom G6 Transmitter ) device Discont inued EACH .ROUTE EVERY 3 MONTHS 1 [facility] 2023 4:13pm January 04, 2025 11:47 am As directed Blood-Gluco se Sensor (Dexcom G6 Sensor) device Discont inued EACH .ROUTE .MEDSUPPLY 3 [facility] 2023 4:13pm January 04, 2025 11:47 am As directed Blood-Gluco se,Patent Examiner ,Cont (Dexcom G7 Patent Examiner) misc Discont inued 0 .Route 1 January 30, 2025 12:00a m February 21, 2025 11:41 am As directed Blood-Gluco se Sensor (Dexcom G7 Sensor) device Discont inued 0 .Route 2 January 30, 2025 12:00a m February 21, 2025 11:41 am As directed Gabapentin 800 mg tablet Discont inued 800 MG PO THREE TIMES A DAY 90 January 30, 2025 11:50a m Augus t 2024 2:22p m Hydrocodone -Acetaminop hen 7.5-325 mg tablet Discont inued 1 TAB PO TWICE A DAY as needed for pain 60 January 30, 2025 February 21, 2025 11:40 am Finerenone 20 mg tablet Discont inued 20 MG PO DAILY January 30, 2025 11:51a m March 21, 2025 1:38p m Empaglifloz in 25 mg tablet Active 25 MG PO DAILY January 30, 2025 11:52a m Unknown Hydrocodone -Acetaminop hen 7.5-325 mg tablet Discont inued 1 TAB PO TWICE A DAY as needed for pain 60 April 19, 20252024 9:02a m Lancets (Accu-Chek Safe-T-Pro) 23 gauge misc Active 0 .Route 200 April 19, 2025 1:45pm As directed Insulin Glargine-Yf gn 100 unit/mL (3 mL) insulin pen Discont inued 32 UNIT SUBCUT Every Evening 2024 8:57am 2024 9:00a m Insulin Glargine-Yf gn 100 unit/mL (3 mL) insulin pen Active 32 UNIT SUBCUT Every Evening 15 2024 9:00am Unknown Hydrocodone -Acetaminop hen 7.5-325 mg tablet Active 1 TAB PO TWICE A DAY as needed for pain 60 2024 Unknown Blood-Gluco se Sensor (Dexcom G7 Sensor) device Active 0 .Route 2 2024 9:01am As directed Inclisiran (Leqvio) 284 mg/1.5 mL syringe Active 284 MG SUBCUT EVERY 6 MONTHS 1.5 2024 9:02am x2, then q 6 months Unknown Immunizations Immunization Event Date Not Given Reason Dose Number [employer] Lot Number Vaccine Information Statement (VIS) Detail Administration Location Moderna COVID-19 Vaccine (Age 18+) April 24, 2021 Moderna COVID-19 Vaccine (Age 18+) May 22, 2021 Hepatitis A Vaccine, adult dosage July 12, 2018 Hepatitis A Vaccine, adult dosage January 30, 2019 Medical Equipment Device Date Implanted Device Details Posterior-chamber intraocula r lens, pseudophakic May 09, 2025 VALENTE: [id number] Issuing Agency: [facility] Device Id: [id number] Expiration Date: 2026-01-31 Serial Number: [id number] Procedures Procedure Date Performed Status Phacoemulsification (Right) May 09, 2025 8: 40am completed Relevant Diagnostic Tests and/or Laboratory Data Laboratory Results Test Collection Date/Time Result Date/Time Result Interpretation Reference Range Result Comment Performing Site Hemoglobi n A1c (Clinic) February 21, 2025 11:30am February 21, 2025 11:30am 6.6 White Blood Count May 21, 2025 4:35pm May 21, 2025 4:58pm 8.15 x10^3/u L 4.40-9.70 [facility] [id number] [facility] [address] [place] [id number] Red Blood Count May 21, 2025 4:35pm May 21, 2025 4:58pm 4.45 x10^6/u L 4.00-5.20 [facility] [id number] [facility] [address] Martin[address] [place] [id number] Hemoglobi n May 21, 2025 4:35pm May 21, 2025 4:58pm 12.6 g/dL 12.0-16.0 [facility] [id number] [facility] [address] [place] [id number] Hematocri t May 21, 2025 4:35pm May 21, 2025 4:58pm 39.7 % 36.0-46.0 [facility] [id number] [facility] [address] [place] [id number] Mean Corpuscul ar Volume May 21, 2025 4:35pm May 21, 2025 4:58pm 89.2 fL 80.0-100.0 [facility] [id number] [facility] [address] [facility] [id number] Mean Corpuscul ar Hemoglobi n May 21, 2025 4:35pm May 21, 2025 4:58pm 28.3 pg 26.0-34.0 [facility] [id number] [facility] [address] [facility] [address] Mean Corpuscul ar Hemoglobi n Concent May 21, 2025 4:35pm May 21, 2025 4:58pm 31.7 g/dL 31.0-37.0 [facility] [id number] [facility] [place] [id number] RDW Standard Deviation May 21, 2025 4:35pm May 21, 2025 4:58pm 47.4 fL 38.4-47.7 [place] [id number] [facility] [place] [id number] RDW Coefficie nt of Variation May 21, 2025 4:35pm May 21, 2025 4:58pm 14.5 % 12.4-15.1 [place] [id number] [facility] [place] [id number] Platelet Count May 21, 2025 4:35pm May 21, 2025 4:58pm 383 x10^3/u L [id number] [place] [id number] [facility] [place] [id number] Mean Platelet Volume May 21, 2025 4:35pm May 21, 2025 4:58pm 9.7 fL 9.4-12.3 [place] [id number] [facility] [place] [id number] Neutrophi ls (%) (Auto) May 21, 2025 4:35pm May 21, 2025 4:58pm 62.0 % 34.0-71.1 [place] [id number] [facility] [place] [id number] Lymphocyt es (%) (Auto) May 21, 2025 4:35pm May 21, 2025 4:58pm 28.7 % 19.3-51.7 [place] [id number] [facility] [place] [id number] Monocytes (%) (Auto) May 21, 2025 4:35pm May 21, 2025 4:58pm 6.6 % 4.7-12.5 [facility] [id number] [facility] [place] [id number] Eosinophi ls (%) (Auto) May 21, 2025 4:35pm May 21, 2025 4:58pm 1.7 % 0.7-5.8 [place] [id number] [facility] [address] [place] [id number] Basophils (%) (Auto) May 21, 2025 4:35pm May 21, 2025 4:58pm 0.6 % 0.1-1.2 [facility] [id number] [facility] [address] [place] [address] Neutrophi ls # (Auto) May 21, 2025 4:35pm May 21, 2025 4:58pm 5.05 x10^3/u L 1.56-6.13 [facility] [id number] [facility] [address] [place] [address] Lymphocyt es # (Auto) May 21, 2025 4:35pm May 21, 2025 4:58pm 2.34 x10^3/u L 1.18-3.74 [facility] [id number] [facility] [address] [place] [address] Monocytes # (Auto) May 21, 2025 4:35pm May 21, 2025 4:58pm 0.54 x10^3/u L 0.24-0.86 [facility] [id number] [facility] [address] [place] [address] Eosinophi ls # (Auto) May 21, 2025 4:35pm May 21, 2025 4:58pm 0.14 x10^3/u L 0.04-0.36 [facility] [id number] [facility] [address] [place] [address] Basophils # (Auto) May 21, 2025 4:35pm May 21, 2025 4:58pm 0.05 x10^3/u L 0.01-0.08 [facility] [id number] [facility] [address] [place] [address] Urine Creatinin e January 30, 2025 12:00pm January 31, 2025 8:40am < 13.00 mg/dL No known normal values established [facility] [id number] [address] [place] [address] Urine Microalbu min January 30, 2025 12:00pm January 31, 2025 8:40am 15.0 mg/L 1.3-20.0 [facility] [id number] [address] [place], [place] [id number] Urine Microalbu min/Creat inine Ratio January 30, 2025 12:00pm January 31, 2025 8:40am TNP Test not performedUn able to calculate [facility] [id number] [address] [place], [place] [id number] Sodium Level May 21, 2025 4:35pm May 21, 2025 5:40pm 141 mmol/L 136-145 [facility] [id number] [facility] [address] [place] [id number] Potassium Level May 21, 2025 4:35pm May 21, 2025 5:40pm 3.6 mmol/L 3.5-5.1 [facility] [id number] [facility] [address] [place] [id number] Chloride Level May 21, 2025 4:35pm May 21, 2025 5:40pm 101 mmol/L 98-107 [facility] [id number] [facility] [address] [place] [id number] Carbon Dioxide Level May 21, 2025 4:35pm May 21, 2025 5:40pm 25.8 mmol/L 21.0-32 [facility] [id number] [facility] [address] [place] [id number] Anion Gap May 21, 2025 4:35pm May 21, 2025 5:40pm 14.2 mmol/L 5.0-15.0 [facility] [id number] [facility] [address] [place] [id number] Blood Urea Nitrogen May 21, 2025 4:35pm May 21, 2025 5:40pm 20 mg/dL 7.0-18.0 [facility] [id number] [facility] [address] [place] [id number] Creatinin e May 21, 2025 4:35pm May 21, 2025 5:40pm 1.03 mg/dL 0.55-1.02 [facility] [id number] [facility] [address] [place] [id number] Estimat Glomerula r Filtratio n Rate May 21, 2025 4:35pm May 21, 2025 5:40pm 62.3 eGFR Interpretat ion: Disease State Ref Ranges (Calculated )Units: ml/min/1.73 m2 Stage eGFR Description I/II >60 Normal/Mild ly reduced kidney function III 30-59 Moderately reduced kidney function IV 15-29 Severely reduced kidney function V <15 End-stage kidney failureCalc ulated using MDRD formula based on gender,race (*GFR AA is for the population) ,and age. GFR estimates are unreliable in patients with rapidly changing kidney function,re cent dialysis,ex tremes in body size,severe malnutritio n or obesity,los s of limbs, abnormal muscle mass,or during . In these patients,al ternative determinati ons of GFR should be obtained. [facility] [id number] [address] [facility] [address] BUN/Creat inine Ratio May 21, 2025 4:35pm May 21, 2025 5:40pm 19.4 Ratio 6.0-20.0 [facility] [id number] [address] [facility] [address] Glucose Level May 21, 2025 4:35pm May 21, 2025 5:40pm 183 mg/dL 70-99 Falsely depressed or elevated results may occur on samples drawn from patients taking Sulfasalazi ne and Sulfapyridi ne, if the blood sample is drawn before clearance of the drug. [facility] [id number] [address] [facility] [address] Calcium Level May 21, 2025 4:35pm May 21, 2025 5:40pm 9.2 mg/dL 8.5-10.1 [facility] [id number] [address] [facility] [address] Phosphoru s Level May 21, 2025 4:35pm May 21, 2025 5:40pm 3.7 mg/dL 2.6-4.7 [facility] [id number] [address] [facility] [address] Total Bilirubin May 21, 2025 4:35pm May 21, 2025 5:40pm 0.48 mg/dL 0.20-1.00 [facility] [id number] [address] [facility] [address] Direct Bilirubin May 21, 2025 4:35pm May 21, 2025 5:40pm 0.15 mg/dL 0.0-0.20 [facility] [id number] [address] [facility] [address] Aspartate Amino Transf (AST/SGOT ) May 21, 2025 4:35pm May 21, 2025 5:40pm 23 U/L 15-37 Falsely depressed or elevated results may occur on samples drawn from patients taking Sulfasalazi ne and Sulfapyridi ne, if the blood sample is drawn before clearance of the drug. [facility] [id number] [address] [facility] [address] Alanine Aminotran sferase May 21, 2025 4:35pm May 21, 2025 5:40pm 23 U/L 14-59 Falsely depressed or elevated results may occur on samples drawn from patients taking Sulfasalazi ne and Sulfapyridi ne, if the blood sample is drawn before clearance of the drug. [facility] [id number] [address] [facility] [address] Total Protein May 21, 2025 4:35pm May 21, 2025 5:40pm 6.9 g/dL 6.4-8.2 [facility] [id number] [address] [facility] [address] Albumin May 21, 2025 4:35pm May 21, 2025 5:40pm 4.0 g/dL 3.4-5.0 [facility] [id number] [address] [facility] [address] Albumin/G lobulin Ratio May 21, 2025 4:35pm May 21, 2025 5:40pm 1.4 Ratio 1.0-2.0 [facility] [id number] [address] [facility] [address] Triglycer ides Level May 21, 2025 4:35pm May 21, 2025 5:40pm 161 mg/dL 0-149 [facility] [id number] [address] [facility] [address] Cholester ol Level May 21, 2025 4:35pm May 21, 2025 5:40pm 89 mg/dL 0-199 [facility] [id number] [address] [facility] [address] LDL Cholester ol, Calculate d May 21, 2025 4:35pm May 21, 2025 5:40pm 6 mg/dL 0-99 [facility] [id number] [facility] [address] [facility] [address] VLDL Cholester ol May 21, 2025 4:35pm May 21, 2025 5:40pm 32 mg/dL 0-30 [facility] [id number] [facility] [address] [place] [id number] HDL Cholester ol May 21, 2025 4:35pm May 21, 2025 5:40pm 51 mg/dL 40-60 [facility] [id number] [facility] [address] [place] [id number] Cholester ol/HDL Ratio May 21, 2025 4:35pm May 21, 2025 5:40pm 2 Ratio 4-5 [facility] [id number] [facility] [address] [place] [id number] Alkaline Phosphata se May 21, 2025 4:35pm May 21, 2025 5:40pm 63 U/L 46-116 [facility] [id number] [facility] [address] [place] [id number] Free Thyroxine May 21, 2025 4:35pm May 21, 2025 5:40pm 0.75 ng/dL 0.76-1.46 Falsely depressed or elevated results may occur on samples drawn from patients taking supplements that contain Biotin in excess of the daily recommended allowance, if the blood sample is drawn before clearance of the drug. [facility] [id number] [facility] [address] [facility] [address] Thyroid Stimulati ng Hormone (TSH) May 21, 2025 4:35pm May 21, 2025 5:40pm 0.850 mcIU/mL 0.358-3.74 0 Falsely depressed or elevated results may occur on samples drawn from patients taking supplements that contain Biotin in excess of the daily recommended allowance, if the blood sample is drawn before clearance of the drug. [facility] [id number] [facility] [address] [place] [id number] Diagnostic Imaging Reports Author Cameron Wilkes [facility], [facility]. Authored March 02, 2025 2:49 pm Report Dictated Date/Time Dictated By Status Radiology Report March 02, 2025 2:49pm Jennifer Wilkes MD completed [address] [place] [address] Mammography Report Signed MR#: [id number] Acct:[id number] Loc: PD.RAD Patient: Ned Roger : 1965 Age/Sex: 60 / F Attending Provider: Yordan Jones D.O. Ordering Provider: Yordan Jones DO ADM Date: 03/02/25 Date of Service: 03/02/25 Procedure(s): MM scrn mammo juan miguel BI Accession Number(s): [id number] cc: Yordan Jones DO~ Exam: 3-D screening mammography including tomosynthesis and CAD (Computer Assisted Detection). Clinical indication: Asymptomatic screening exam Comparison: Exams to 2022 TECHNIQUE: Routine bilateral 2D screening mammogram with CC and MLO views obtained. 3-D tomosynthesis and Computer assisted detection were utilized for this exam. BREAST DENSITY: There are scattered areas of fibroglandular density FINDINGS: No suspicious mass, architectural distortion, or suspicious calcifications are present. Stable subareolar right breast mass to 2022 consistent with a benign process. IMPRESSION: No evidence of malignancy in either breast Recommendation: Annual screening mammography recommended in one year The results of this report will be communicated to the patient by letter in layman's terms. ACR BI-RADS: BI-RADS assessment category 1: Negative mammogram Mammography does not detect approximately 10-15% of breast cancers. A normal mammogram does not exclude breast cancer in a patient with palpable mass or abnormal findings on physical examination. These patients may need biopsies and when clinically indicated a biopsy should not be postponed because of a normal mammogram. If the patient has breast surgery or biopsy, FDA/MQSA Regulatory Guidelines mandate that this facility receive pathologic results for follow-up correlation. Electronically signed by: Cameron Wilkes MD 03/02/2025 02:49 PM EDT Dictated By: Cameron Wilkes MD 03/02/25 1449 Signed By: <Electronically signed by Cameron Wilkes MD in [place]> 03/02/25 1449 TD/TT: 03/02/25 1449 Vital Signs Vital Reading Result Reference Range Collection Date/Time Height 67 [in_i] January 30, 2025 10:57am Weight 184.50 [lb_av] January 30 10:57am Body Temperature 97.9 [degF] 97.6-99.6 January 30, 025 10:57am Heart Rate 67 /min 60-100 January 30, 2025 10:57am Oxygen saturation by Pulse oximetry 100 % 95-100 January 30, 2025 10:57 am BP Systolic 99 mm[Hg] 90-120 January 30, 2025 10:57am BP Diastolic 65 mm[Hg] 60-80 January 30, 2025 10:57am BMI (Body Mass Index) 28.9 kg/m2 January 312024 12:39am Height 67 [in_i] February 21, 2025 11:16am Weight 188.37 [lb_av] February 21 11:16am Body Temperature 97.4 [degF] 97.6-99.6 February 21, 2025 11:16am Heart Rate 76 /min 60-100 February 21, 2025 11:16am Oxygen saturation by Pulse oximetry 97 % 95-100 February 21, 2025 11:1 6am BP Systolic 97 mm[Hg] 90-120 February 21, 2025 11:16am BP Diastolic 64 mm[Hg] 60-80 February 21, 2025 11:16am BMI (Body Mass Index) 29.5 kg/m2 February 112024 6:06pm Height 67 [in_i] March 21, 2025 1:21pm Weight 179.00 [lb_av] March 21 1:21pm Body Temperature 98.1 [degF] 97.6-99.6 March 21, 2 025 1:21pm Heart Rate 78 /min 60-100 March 21, 2025 1:21pm Respiratory rate 16 /min -March 21, 2 025 1:21pm Oxygen saturation by Pulse oximetry 97 % 95-100 March 21, 2025 1:21p m BP Systolic 87 mm[Hg] 90-120 March 21, 2025 1:24pm BP Diastolic 58 mm[Hg] 60-80 March 21, 2025 1:24pm BMI (Body Mass Index) 28.0 kg/m2 March 132024 12:23pm Height 67 [in_i] March 28, 2025 9:13am Weight 178.12 [lb_av] March 28 9:13am Body Temperature 98.2 [degF] 97.6-99.6 March 28, 2025 9:13am Heart Rate 66 /min 60-100 March 28, 2025 9:13am Respiratory rate 14 /min -March 28, 2025 9:13am Oxygen saturation by Pulse oximetry 100 % 95-100 March 28, 2025 9:13 am BP Systolic 122 mm[Hg] 90-120 March 28, 2025 9:13am BP Diastolic 77 mm[Hg] 60-80 March 28, 2025 9:13am BMI (Body Mass Index) 27.8 kg/m2 March 132024 10:08am Height 67 [in_i] April 19 1:06pm Weight 173.37 [lb_av] April 19, 025 1:06pm Body Temperature 98.2 [degF] 97.6-99.6 April 19, 2025 1:06pm Heart Rate 75 /min 60-100 April 19 1:06pm Oxygen saturation by Pulse oximetry 98 % 95-100 April 19, 2025 1:0 6pm BP Systolic 102 mm[Hg] 90-120 April 19 1:06pm BP Diastolic 68 mm[Hg] 60-80 April 19 1:06pm BMI (Body Mass Index) 27.1 kg/m2 April 29, 2025 7:07pm Height 66 [in_i] May 09 8:04am Weight 166.00 [lb_av] May 09, 2025 8:04am Body Temperature 98.2 [degF] 97.6-99.6 April 8:50am Heart Rate 77 /min 60-100 May 09 8:50am Respiratory rate 16 /min -April 8:50am Oxygen saturation by Pulse oximetry 98 % 95-100 May 09, 2025 8: 50am BP Systolic 134 mm[Hg] 90-120 May 09 8:50am BP Diastolic 67 mm[Hg] 60-80 May 09 8:50am Height 66 [in_i] May 21, 2025 8:43am Weight 165.25 [lb_av] May 8:43am Body Temperature 97.7 [degF] 97.6-99.6 May 212024 8:43am Heart Rate 70 /min 60-100 May 21, 2025 8:43am Oxygen saturation by Pulse oximetry 99 % 95-100 May 21, 2025 8:43am BP Systolic 100 mm[Hg] 90-120 May 21, 2025 8:43am BP Diastolic 67 mm[Hg] 60-80 May 21, 2025 8:43am BMI (Body Mass Index) 26.6 kg/m2 2024 9:29am Advance Directives Advance Directive Response Recorded Date/ Time Advance Directives No May 09, 2025 7:17am Living Will No May 09 7:17am Insurance Providers Guarantor Ned Roger Address [address] [place] [address] Contact Info. Home Phone: Payer Policy Id Subscriber's Name Subscriber Id Effectiv e Date Expiration Date [facility] [id number] Ned Roger [id number] Encounters Encounter Location(s) Arrival/Admit Date Discharge/Depart Date Provider(s) Departed Physician/Prov ider Office Visit -[facility] January 30, 2025 10:18am January 30, 2025 12:01pm Yordan Jones DO Departed Clinical -[facility] Director Lab January 30, 2025 11:55am January 30, 2025 11:56am Yordan Jones DO Departed Physician/Prov ider Office Visit [facility] February 21, 2025 11:10am February 21, 2025 11:43am Yordan Jones DO Departed Physician/Prov ider Office Visit [facility] February 23, 2025 1:44pm February 23, 2025 1:53pm Tiffani Moreno APRN Departed Clinical -[facility] March 02, 2025 1:51pm March 02, 2025 1:52pm Yordan Jones DO Departed Physician/Prov ider Office Visit [facility] March 21, 2025 1:11pm March 21, 2025 1:41pm Yordan Jones DO Departed Physician/Prov ider Office Visit -[facility] March 28, 2025 9:01am March 28, 2025 9:46am Blanca Gonsalez NP Departed Physician/Prov ider Office Visit -[facility] April 19, 2025 1:04pm April 19, 2025 2:17pm Yordan Jones DO Departed Surgical Day Care -[facility] Operating Room May 09, 2025 6:47am May 09, 2025 9:00am Rodrigo Treviño MD Departed Physician/Prov ider Office Visit -[facility] May 21, 2025 8:23am May 21, 2025 9:55am Yordan Jones DO Departed Clinical -[facility] Lab May 21, 2025 9:11am May 21, 2025 9:12am Yordan Jones DO Recent Diagnosis Onset Date Admit Date BMI 28.0-28.9,adult Unknown January 30 10:18am Chronic pain syndrome Unknown January 30, 2025 10:18am Slow transit constipation Unknown January 302024 10:18am CAD (coronary artery disease) Unknown 2024 10:18am Diabetes mellitus Unknown January 30, 2025 10:18am Essential (primary) hypertension Unknown January 30, 2025 10:18am Lumbar degenerative disc disease Unknown January 30, 2025 10:18am Lumbar radicular pain Unknown January 30, 2025 10:18am Mixed hyperlipidemia Unknown January 30, 2 025 10:18am Pure hypercholesterolemia Unknown January 302024 10:18am PVD (peripheral vascular dis ease) with claudication Unknown January 30, 2025 10:18am Spondylolisthesis, lumbar region Unknown January 30, 2025 10:18am Subclinical hyperthyroidism Unknown January 30, 2025 10:18am Type 2 diabetes mellitus wit h diabetic polyneuropathy Unknown January 30, 2025 10:18am Type 2 diabetes mellitus wit h stage 3b chronic kidney disease Unknown January 30, 2025 10:18am Vitamin D deficiency Unknown January 30 025 10:18am CHF (congestive heart failure) Unknown M ay 2024 10:18am Chronic pain syndrome Unknown February 21, 2025 11:10am Slow transit constipation Unknown February 112024 11:10am CAD (coronary artery disease) Unknown Ju ne 2024 11:10am Essential (primary) hypertension Unknown February 21, 2025 11:10am Lumbar degenerative disc disease Unknown February 21, 2025 11:10am Lumbar radicular pain Unknown February 21, 2025 11:10am Mixed hyperlipidemia Unknown February 21, 2025 11:10am Pure hypercholesterolemia Unknown February 112024 11:10am PVD (peripheral vascular dis ease) with claudication Unknown February 21, 2025 11:10am Spondylolisthesis, lumbar region Unknown February 21, 2025 11:10am Subclinical hyperthyroidism Unknown February 21, 2025 11:10am Type 2 diabetes mellitus wit h diabetic polyneuropathy Unknown February 21, 2025 11:10am Type 2 diabetes mellitus wit h stage 3b chronic kidney disease Unknown February 21, 2025 11:10am Vitamin D deficiency Unknown February 21, 2025 11:10am CHF (congestive heart failure) Unknown J une 2024 11:10am BMI 28.0-28.9,adult Unknown March 21 1:11pm Buergers disease Unknown March 21, 2025 1:11pm Chronic pain syndrome Unknown March 21, 2025 1:11pm Slow transit constipation Unknown March 212024 1:11pm Allergic rhinitis Unknown March 21, 2025 1:11pm CAD (coronary artery disease) Unknown Ju ly 2024 1:11pm COPD (chronic obstructive pulmonary disease) Unk nown March 21, 2025 1:11pm Essential (primary) hypertension Unknown March 21, 2025 1:11pm Lumbar degenerative disc disease Unknown March 21, 2025 1:11pm Lumbar radicular pain Unknown March 21, 2025 1:11pm Mixed hyperlipidemia Unknown March 21 1:11pm PVD (peripheral vascular dis ease) with claudication Unknown March 21, 2025 1:11pm Subclinical hyperthyroidism Unknown March 21, 2025 1:11pm Type 2 diabetes mellitus wit h diabetic polyneuropathy Unknown March 21, 2025 1:11pm Type 2 diabetes mellitus wit h stage 3b chronic kidney disease Unknown March 21, 2025 1:11pm Vitamin D deficiency Unknown March 21, 1:11pm Encounter for Health [facility] Examination in Adult Unknown March 21, 2025 1:11pm CAD (coronary artery disease) Unknown Ju ly 2024 9:01am Cigarette nicotine dependence Unknown Ju ly 2024 9:01am Essential (primary) hypertension Unknown March 28, 2025 9:01am Pure hypercholesterolemia Unknown March 132024 9:01am PVD (peripheral vascular dis ease) with claudication Unknown March 28, 2025 9:01am Type 2 diabetes mellitus wit h diabetic polyneuropathy Unknown March 28, 2025 9:01am Chronic pain syndrome Unknown April 1:04pm Slow transit constipation Unknown April 19, 2025 1:04pm CAD (coronary artery disease) Unknown 2024 1:04pm Essential (primary) hypertension Unknown April 19, 2025 1:04pm Lumbar degenerative disc disease Unknown April 19, 2025 1:04pm Lumbar radicular pain Unknown April 1:04pm Mixed hyperlipidemia Unknown April 19, 2025 1:04pm Pure hypercholesterolemia Unknown April 19, 2025 1:04pm PVD (peripheral vascular dis ease) with claudication Unknown April 19, 2025 1:04pm Spondylolisthesis, lumbar region Unknown April 19, 2025 1:04pm Subclinical hyperthyroidism Unknown 2024 1:04pm Type 2 diabetes mellitus wit h diabetic polyneuropathy Unknown April 19, 2025 1:04pm Type 2 diabetes mellitus wit h stage 3b chronic kidney disease Unknown April 19, 2025 1:04pm Vitamin D deficiency Unknown April 19, 2025 1:04pm CHF (congestive heart failure) Unknown A [id number] 1:04pm Diabetes mellitus Unknown May 21, 2025 8:23am Subclinical hyperthyroidism Unknown May 8:23am Functional Status Observation Response Date Recorded Ambulation Ability Independent May 09, 2025 7:17am Assessments Diagnosis Onset Date Resolution Status Admit Date BMI 28.0-28.9,adult acute January 122024 10:18am Chronic pain syndrome acute January 30, 2025 10:18am Slow transit constipation acute January 30, 2025 10:18am CAD (coronary artery disease) chroni c January 30, 2025 10:18am Diabetes mellitus chronic January 10:18am Essential (primary) hypertension chr onic January 30, 2025 10:18am Lumbar degenerative disc disease chr onic January 30, 2025 10:18am Lumbar radicular pain chronic January 30, 2025 10:18am Mixed hyperlipidemia chronic January 30, 2025 10:18am Pure hypercholesterolemia chronic January 30, 2025 10:18am PVD (peripheral vascular disease) with claudication chronic January 122024 10:18am Spondylolisthesis, lumbar region chr onic January 30, 2025 10:18am Subclinical hyperthyroidism chronic January 30, 2025 10:18am Type 2 diabetes mellitus wit h diabetic polyneuropathy chronic January 10:18am Type 2 diabetes mellitus wit h stage 3b chronic kidney disease chronic January 30, 2025 10:18am Vitamin D deficiency chronic January 30, 2025 10:18am CHF (congestive heart failure) suspe cted January 30, 2025 10:18am Chronic pain syndrome acute Feb 11:10am Slow transit constipation acute February 21, 2025 11:10am CAD (coronary artery disease) chroni c February 21, 2025 11:10am Essential (primary) hypertension chr onic February 21, 2025 11:10am Lumbar degenerative disc disease chr onic February 21, 2025 11:10am Lumbar radicular pain chronic Feb 11:10am Mixed hyperlipidemia chronic February 21, 2025 11:10am Pure hypercholesterolemia chronic February 21, 2025 11:10am PVD (peripheral vascular disease) with claudication chronic February 21, 2025 11:10am Spondylolisthesis, lumbar region chr onic February 21, 2025 11:10am Subclinical hyperthyroidism chronic February 21, 2025 11:10am Type 2 diabetes mellitus wit h diabetic polyneuropathy chronic February 11:10am Type 2 diabetes mellitus wit h stage 3b chronic kidney disease chronic February 21, 2025 11:10am Vitamin D deficiency chronic February 21, 2025 11:10am CHF (congestive heart failure) suspe cted February 21, 2025 11:10am BMI 28.0-28.9,adult acute March 21, 2025 1:11pm Buergers disease acute March 1:11pm Chronic pain syndrome acute Mar 1:11pm Slow transit constipation acute March 21, 2025 1:11pm Allergic rhinitis chronic March 1:11pm CAD (coronary artery disease) chroni c March 21, 2025 1:11pm COPD (chronic obstructive pulmonary disease) chronic March 21 1:11pm Essential (primary) hypertension chr onic March 21, 2025 1:11pm Lumbar degenerative disc disease chr onMarch 21, 2025 1:11pm Lumbar radicular pain chronic Mar 1:11pm Mixed hyperlipidemia chronic March 21, 2025 1:11pm PVD (peripheral vascular disease) with claudication chronic March 21, 2025 1:11pm Subclinical hyperthyroidism chronic March 21, 2025 1:11pm Type 2 diabetes mellitus wit h diabetic polyneuropathy chronic March 1:11pm Type 2 diabetes mellitus wit h stage 3b chronic kidney disease chronic March 21, 2025 1:11pm Vitamin D deficiency chronic March 21, 2025 1:11pm Encounter for Health Mainten ance Examination in Adult noneactive March 21, 2 025 1:11pm CAD (coronary artery disease) chroni c March 28, 2025 9:01am Cigarette nicotine dependence chroni c March 28, 2025 9:01am Essential (primary) hypertension chr onMarch 28, 2025 9:01am Pure hypercholesterolemia chronic March 28, 2025 9:01am PVD (peripheral vascular disease) with claudication chronic March 28, 2025 9:01am Type 2 diabetes mellitus wit h diabetic polyneuropathy chronic March 9:01am Chronic pain syndrome acute Apr 1:04pm Slow transit constipation acute April 19, 2025 1:04pm CAD (coronary artery disease) chroni c April 19, 2025 1:04pm Essential (primary) hypertension chr onic April 19, 2025 1:04pm Lumbar degenerative disc disease chr onApril 19, 2025 1:04pm Lumbar radicular pain chronic Apr 1:04pm Mixed hyperlipidemia chronic st 2024 1:04pm Pure hypercholesterolemia chronic April 19, 2025 1:04pm PVD (peripheral vascular disease) with claudication chronic Aprus t 2024 1:04pm Spondylolisthesis, lumbar region chr onic April 19, 2025 1:04pm Subclinical hyperthyroidism chronic April 19, 2025 1:04pm Type 2 diabetes mellitus wit h diabetic polyneuropathy chronic April 192024 1:04pm Type 2 diabetes mellitus wit h stage 3b chronic kidney disease chronic April 19, 2025 1:04pm Vitamin D deficiency chronic st 2024 1:04pm CHF (congestive heart failure) suspe cted April 19, 2025 1:04pm Diabetes mellitus chronic Septemb er 2024 8:23am Subclinical hyperthyroidism chronic May 21, 2025 8:23am Plan of Treatment Author Blanca Gonsalez [facility] [place], [employer]. Authored March 28, 2025 10:0 8am Hx of 4V CABG, no anginal sy mptoms, we will continue aspirin 81mg PO daily. Hx of PVD and stenting, stable at this time with no issues. She is taking 12.5mg of losartan every other day as well as bisoprolol 2.5mg PO daily. We will continue current management. Last A1c has improved into the 7s, target <7. We will continue to monitor. We will continue current management. She smoked for many years and quit! Education given on the importance of continued cessation for about 5 minutes. Author Yordan Jones [facility] [place], [place] Authored February 21, 2025 6:06 pm ASSESSMENT AND PLAN Hyperlipidemia - LDL levels remain elevated at 118, target LDL level is <70 - Increased pain and limited mobility - Discussion about the cholesterol shot and medication adjustments - Prescription for Leqvio to be sent to pharmacy - Administer once every 3 months for two doses, then every 6 months - Current medication (rosuvastatin) to be continued upon receiving the injection Author Yordan Jones [facility] [place] Authored January 31, 2025 12:39 am ASSESSMENT AND PLAN Type 2 diabetes mellitus - Renal function last assessed in 11/2024, indicating 60% eGFR - Blood pressure today is 99/65, low normal - Microalbumin test to be conducted today - Provide Dexcom sensor device with 5 refills - Process prior authorization for Mounjaro Back pain - Reports severe lower back pain over the last 2 days, sometimes requiring an extra pain pill - No new physical exam findings discussed - Reviewed pain management and medication use - Renew Gabapentin prescription Blood pressure management - Blood pressure today is 99/65, low normal - Currently taking half a dose of losartan - Reviewed blood pressure and medication regimen - Escalate dosage of Kerendia to 20 mg - Increase Jardiance to 25 mg to help improve kidney function Author Yordan Jones [facility]. Authored April 29, 2025 7: 08pm ASSESSMENT AND PLAN Left ear popping and cracking - Reports popping and cracking in the left ear - Ears examined and found to be in normal condition - Discussed symptoms and confirmed normal ear examination - No treatment required as ears appear normal Chest pain - No current chest pain reported - Patient doing well since bypass surgery on 04/20/2024 - Reviewed history of bypass surgery and smoking cessation since 02/04/2024 - No new medications or therapies needed for chest pain Medication management - Needs refills for pain medication - Prior authorization for pain medication is rarely approved - All other non-controlled medications sent for a 3-month supply - Labs ordered for next month; patient to come fasting Follow-up - Next scheduled visit for labs next month Future Tests Future scheduled test information is unavailable Pending Tests Test Name Ordered Date Scheduled Date Urine Creatinine May 21, 2025 4:35pm Urine Microalbumin May 21, 2025 4:35pm Urine Microalbumin/Creatinin e Ratio May 21, 2025 4:35pm Total Triiodothyronine May 21, 2025 4:35p m Urine Hydromorphone Level May 21, 2025 4: 35pm Urine Hydrocodone May 21, 2025 4:35pm Urine Morphine Level May 21, 2025 4:35pm Triiodothyronine T3 Total May 21, 2025 9: 03am May 21, 2025 4:35pm Future Visits Future appointment information is unavailable Referrals to Other Providers Referral information is unavailable Future Procedures Procedure Name Ordered Date Scheduled Date Depart from Same Day Surgery May 08, 2025 4 :08pm May 09, 2025 8:52am Microalbum Creatinine Ratio Ur May 21 9:03am May 21, 2025 4:35pm Opiates Confirmation, Urine May 21, 2025 9:26am May 21, 2025 4:35pm Future Medications Future medication information is unavailable Patient Instructions Patient instructions are unavailable
[2025-07-02] VITALS (7 sets, daily range): BP systolic 123–147; BP diastolic 68–97; PULSE 73–96; RESP 12–16; TEMP 36.6; O2SAT 98–100; BMI 20.3
--- NOTE | 2025-07-02 08:55 | XR_ITS ---
FINAL REPORT TECHNIQUE: Single view chest CLINICAL HISTORY: dyspnea, smoker FINDINGS: A single view of the chest was obtained. Patient is status post median sternotomy. The heart and mediastinum are within normal limits. The lungs are clear. There is no pneumothorax. IMPRESSION: No acute cardiopulmonary process. Reviewed, Interpreted and Dictated by Rody Aguilar MD Transcribed by Leonadra [place] Authenticated and . [facility]
--- NOTE | 2025-07-02 08:56 | HMH.EDGENADL ---
Discharge Plan Disposition Patient Disposition: Home, Self-Care Prescriptions Prescriptions: New ondansetron 4 mg tablet,disintegrating 4 mg PO Q6H PRN (Reason: nausea and vomiting) 5 Days Qty: 20 0RF Referrals Follow up/Referrals: Yordan Jones DO [Primary Care Provider, Medical] - See instructions Amilcar Danielson MD [Staff Physician, Cardiology] - See instructions Activity Restrictions/Add. Instructions Additional Instructions/Restrictions: No definitive emergent medical condition identified today you are mildly dehydrated as a result of your nausea and vomiting. Please take your nausea and vomiting medication as needed for symptoms wear your Holter monitor and follow-up closely with Dr. Danielson's clinic. Please call make next available appointment. Clinical Impressions Clinical Impression: Near syncope, Nausea & vomiting Instructions Patient Instructions: DI for Diarrhea and Traveler's Diarrhea in Adults, DI for Diarrhea and Traveler's Diarrhea in Children, DI for Nausea in Adults, DI for Nausea in Children Print Language Print Language: Telugu Discharge ED Provider: Liberty Bahena General Adult HPI General Chief complaint: Nausea/Vomiting/Diarrhea Stated complaint: weakness, dizzy, vomiting, back pain Time Seen by Provider: 07/02/25 08:48 Mode of Arrival: Ambulatory Source of Information: Patient Description of Symptoms (Recalled from ER Triage Doc. by RN): patient states she has had n/v/d for 4 days with right mid back pain History of Present Illness HPI narrative: Patient is a 60-year-old female with a history of coronary artery disease status post four-vessel CABG 14 months ago as well as a history of diabetes presents today with 4 days of intermittent nausea and vomiting associated with near syncopal episodes. States she also gets hot and flushed and sweaty during these episodes. Currently she is without symptoms other than feeling fatigued or rundown. No pain currently she states. Specifically she denies any chest pain shortness of breath abdominal pain etc. She also denies any neurologic symptoms. Related Data Previous Rx's ?Medication ?Instructions ?Recorded ondansetron 4 mg disintegrating 4 mg PO Q6H PRN nausea and 07/02/25 tablet vomiting 5 days #20 tabs Allergies Allergy/AdvReac Type Severity Reaction Status Date / Time codeine Allergy Hives Verified 07/02/25 08:54 lisinopril Allergy Hives Verified 07/02/25 08:54 [facility] Disclaimer: The information contained in this section may have been updated after the patient was seen, as this information can be updated by other users. Social History Smoking Status: Current every day smoker alcohol intake: never current occupational status: other Travel in the last 8 weeks?: None ROS Obtained: Yes All systems reviewed & no additional complaints except as documented Physical Exam General General appearance: alert Respiratory Respiratory exam: Present normal lung sounds bilaterally; Absent respiratory distress Cardiovascular Cardiovascular exam: Present regular rate and normal rhythm Neurological Exam Neurological exam: Present alert, oriented X3 and other (Nonfocal) Medical Decision Making Medical Records Screening: Per USPSTF and CDC recommendations, given the prevalence of disease in our region, it is our hospital?s policy to screen for HIV and viral Hepatitis for all patients aged 18 and over and those with ongoing risk factors. Bryan Inquiry Pt receiving controlled substance: No Vital Signs: 07/02/25 08:46 07/02/25 08:48 07/02/25 09:00 Temperature 97.8 F Temperature Source Oral Pulse Rate 94 H Pulse Rate [Right Radial] 96 H Respiratory Rate 12 15 12 Blood Pressure 123/76 123/97 H Blood Pressure [Right Arm] 123/76 Blood Pressure Mean [Right Arm] 91 Blood Pressure Source [Right Arm] Automatic Cuff Blood Pressure Position [Right Arm] Supine 02 Sat by Pulse Oximetry 100 99 Oxygen Delivery Method Room Air Lab Data Lab results reviewed: Yes I reviewed the patient's lab results. Lab Results 07/02/25 08:51: WBC 9.3, RBC 4.63, Hgb 13.2, Hct 39.4, MCV 85.1, MCH 28.5, MCHC 33.5, RDW 14.1, Plt Count 472 H, MPV 9.2, Neut % (Auto) 60.8, Lymph % (Auto) 29.4, [place] % (Auto) 7.5, Eos % (Auto) 1.5, Baso % (Auto) 0.6, Neut # (Auto) 5.6, Lymph # (Auto) 2.7, [place] # (Auto) 0.7, Eos # (Auto) 0.1, Baso # (Auto) 0.1, Sodium 136, Potassium 3.3 L, Chloride 95 L, Carbon Dioxide 28, Anion Gap 16.3 H, BUN 17, Creatinine 0.90, Estimated Creat Clear 62, Estimated GFR 64, Est GFR ( Amer) 77, Glucose 201 H, Calcium 9.4, Magnesium 2.1, Total Bilirubin 0.7, AST 49 H, ALT 32, Alkaline Phosphatase 73, Troponin I < 0.01, NT-Pro-B Natriuret Pep 297 H, Total Protein 7.9, Albumin 4.7, Globulin 3.2, Albumin/Globulin Ratio 1.5 07/02/25 08:51 07/02/25 08:51 Orders (Tests/Meds): ED MEDICATIONS Generic Name Dose Route Start Last Admin Trade Name Freq PRN Reason Stop Dose Admin Lactated Ringer's 1,000 mls @ 999 mls/hr 07/02/25 09:00 07/02/25 09:00 Lactated Ringer's 1000 Ml Bag IV 07/02/25 10:00 999 mls/hr .Q1H1M ARSH Administration Discontinued Medications Generic Name Dose Route Start Last Admin Trade Name Freq PRN Reason Stop Dose Admin Ondansetron HCl 4 mg 07/02/25 08:55 07/02/25 09:00 Ondansetron 4mg/2ml Vial IV 07/02/25 08:56 4 mg ONCE ONE Administration ORDERS Category Date Time Status CXR --portable [XR chest portable] Stat Exams 07/02/25 08:55 Taken BNP [NT Pro Brain Natriuretic Pep.] Stat Lab 07/02/25 08:51 Results CBC w/Auto Diff [Complete Blood Count Auto Diff] Stat Lab 07/02/25 08:51 Completed CMP [Comprehensive Metabolic Panel] Stat Lab 07/02/25 08:51 Results HIV Combo Stat Lab 07/02/25 08:51 Received Hepatitis C Ab Qual. W/ RFX Stat Lab 07/02/25 08:51 Received Magnesium Stat Lab 07/02/25 08:51 Results RSV Rapid Ab Screen Stat Lab 07/02/25 08:55 Ordered TSH [Thyroid Stimulating Hormone] Stat Lab 07/02/25 08:51 Results Trop I [Troponin I] Stat Lab 07/02/25 08:51 Results Troponin I Q3H Lab 07/02/25 12:00 Ordered Troponin I Q3H Lab 07/02/25 15:00 Ordered Holter Monitor Req by [place]/ Stat Y 07/02/25 09:52 Ordered Medical Decision Narrative: 60-year-old with above history and physical normal exam objectively right now other than mild dehydration clinically. Will give her some IV fluids and nausea medicine. Differential includes viral syndrome, cardiac arrhythmia or ischemic pathology, electrolyte abnormalities, thyroid dysfunction etc. Laboratory workup chest x-ray and symptomatic medications have been administered and will reassess. If her workup is negative we will get her set up with a Holter monitor and have her closely follow-up with Dr. Danielson's team. Chest x-ray performed which I personally interpreted shows no evidence of any cardiopulmonary abnormalities EKG was performed which I personally interpreted which shows a ventricular rate of 86 normal sinus rhythm no significant conduction abnormalities noted normal axis no acute ischemia. Reassessment patient felt somewhat better after IV fluids she did have evidence of some mild dehydration clinically anion gap was mildly elevated as well. Potassium was just below normal limits at 3.3 but this will be corrected with normal return to drinking fluids electrolytes and diet. No evidence of an arrhythmia while in the emergency department. Holter monitor was placed here she will follow-up closely with Dr. Danielson. Additionally she was concerned that she may be hypoglycemic during these episodes but no definitive evidence of this I advised that they take her blood sugar when this happens next time. No indication for hospitalization or further emergent evaluation or management. Patient discharged in stable condition with advised to closely follow-up with her automobile service station mechanic or her automobile service station mechanic back in [place]. Critical Care Critical Care Time Critical Care Time: No
--- NOTE | 2025-07-02 08:57 | ECG_ITS ---
APPROVED REPORT Exam: Resting ECG HR:86 bpm ECG Measurements Heart Rate 86 AXES VT 122 P 37 QRSd 97 QRS 16 QT 391 T 31 QTc 434 Conclusion SINUS RHYTHM NORMAL ECG UNCONFIRMED REPORT Electronically signed by : JAYY MANDUJANO, 07/03/2025 02:49:16
[2025-07-02] MEDS: ONDANSETRON 4MG/2ML VIAL 4 MG IV (09:00)
[2025-07-02] MEDS: LACTATED RINGERS 1000ML 1,000 ML 999 ML IV (09:00)
[2025-07-02 09:02] LABS: Hematocrit 39.4 % (37.0-47.0); Hemoglobin 13.2 g/dL (12.2-16.2); Immature Granulocytes % 0.2 %; Mean Corpuscular HGB Conc 33.5 g/dL (31.8-35.4); Mean Corpuscular Hemoglobin 28.5 pg (27.0-31.2); Mean Corpuscular Volume 85.1 fl (81-99); Nucleated Red Blood Cells % 0 %; Platelet Count 472 K/mm3 (142-424); Red Blood Count 4.63 M/mm3 (4.20-5.40); Red Cell Distribution Width-SD 43.7 fL; White Blood Count 9.3 K/mm3 (4.8-10.8)
[2025-07-02 09:16] LABS: Albumin Level 4.7 g/dl (3.5-5.0); Chloride 95 mmol/L (98-107); Potassium 3.3 mmoL/L (3.5-5.1); Sodium 136 mmol/L (136-145)
[2025-07-02 09:19] LABS: Alanine Aminotransferase 32 U/L (12-78); Albumin/Globulin Ratio 1.5 (1.1-1.8); Alkaline Phosphatase 73 U/L (38-126); Anion Gap 16.3 mEq/L (5-15); Aspartate Amino Transferase 49 U/L (14-36); Bilirubin,Total 0.7 mg/dl (0.2-1.3); Blood Urea Nitrogen 17 mg/dl (7-17); Calcium 9.4 mg/dl (8.4-10.2); Carbon Dioxide 28 mmol/L (22.0-30.0); Creatinine Clearance Estimated 62 mL/min (50-200); Creatinine,Serum 0.90 mg/dl (0.52-1.04); Estimated Glomerular Filt Rate 64 ml/min (>60); GFR (African American) 77 ML/MIN (>60); Globulin 3.2 g/dL (1.3-3.2); Glucose 201 mg/dl (74-100); Magnesium 2.1 mg/dl (1.6-2.3); Total Protein,Serum 7.9 g/dl (6.3-8.2)
[2025-07-02 09:30] LABS: NT Pro Brain Natriuretic Pep. 297 pg/mL (0-125)
[2025-07-02 09:35] LABS: Troponin I < 0.01 ng/ml (0.00-0.034)
[2025-07-02 09:51] LABS: Thyroid Stimulating Hormone 0.54 uIU/mL (0.465-4.68)
--- NOTE | 2025-07-02 09:54 | PC.NURSE ---
RESPIRATORY NOTIFIED OF HOLTER ORDER
[2025-07-02 10:19] LABS: Hepatitis C Ab Qual. W/ RFX NEGATIVE (Negative)
== END 2025-07-02 10:21 | disposition home or self-care (01) ==
PROVIDERS: Emergency Provider Student in an Organized Health Care Education/Training Program; PCP Family Medicine
DX: R55 Syncope and collapse (principal); R11.2 Nausea with vomiting, unspecified; E87.6 Hypokalemia; R53.83 Other fatigue; F17.210 Nicotine dependence, cigarettes, uncomplicated
CPT/HCPCS: 71045; 80053; 83735; 83880; 84443; 84484; 85025; 86803; 87389; 93005; 93225; 93227; 96361; 96374; 99284; 99285; J2405; J7120